=== PATIENT | male | born 1985 | race Two or more races ===

== ENCOUNTER 2020-06-18 13:47 | Outpatient (REF) | payer OTHER, SELFPAY | END 2020-06-18 13:48 | disposition home or self-care (01) | LOC: HO.LAB 13:47 | PROVIDERS: Visit Provider Internal Medicine | DX: Z20.822 Contact with and (suspected) exposure to COVID-19 (principal) | CPT/HCPCS: 36415; C9803; U0003 ==

== ENCOUNTER 2020-08-29 10:22 | Emergency (ER) | payer OTHER, SELFPAY ==
[2020-08-29 10:26] VITALS: BP 153/82; PULSE 72; RESP 16; TEMP 36.7; O2SAT 98; BMI 31.1
--- NOTE | 2020-08-29 11:25 | ED.BACK ---
HPI - Back Pain/Injury General Chief Complaint: Back Pain/Injury Stated Complaint: back pain - fall Time Seen by Provider: 08/29/20 10:41 Source: patient Mode of arrival: ambulatory Limitations: no limitations History of Present Illness HPI Narrative: 35-year-old male with no significant past medical history presenting to the ED complaining of acute on chronic low back pain s/p mechanical fall down a couple stairs last week. Reports mechanical slip and fall due to wet stairs, landing on buttocks/back, denies head trauma or LOC. patient requesting work note. denies radiation of pain, numbness, tingling, weakness, urinary incontinence/retention MD elicited complaint: back pain, back injury and fall Related Data Allergies Allergy/AdvReac Type Severity Reaction Status Date / Time No Known Allergies Allergy Unverified 02/23/20 19:34 [No Known Allergies*] Review of Systems Review of Systems: Constitutional: No Fever, No Chills Cardiovascular: No Chest Pain, No SOB Genitourinary: No Urinary Incontinence/retention Musculoskeletal: +back pain, No Myalgias, No Joint Swelling Skin: No Skin Lesions, No rash Neuro: No Weakness, No Numbness, No Paresthesias Yes all other systems are reviewed and are negative [facility] Past Medical History Attestation statement: The following information was validated with the patient. Medical History (Updated 08/29/20 @ 11:27 by SEBASTIEN Boone) No known health problems Surgical History (Updated 08/29/20 @ 10:28 by Bhaskar Hensley) No history of previous surgery Social History Social History Alcohol intake: never Smoking Status: Current every day smoker Use of substances other than those prescribed or required for medical reasons: No Advance Directives: No Advance Directives Information Provided: No Physical Exam Vital Signs: Vital Signs: Last Vital Signs Temp 98.0 F 08/29/20 10:26 Pulse 72 08/29/20 10:26 Resp 16 08/29/20 10:26 BP 153/82 H 08/29/20 10:26 Pulse Ox 98 08/29/20 10:26 Body Mass Index 31.1 Const: General: cooperative, healthy appearing, comfortable and no acute distress Orientation/consciousness: patient oriented x3 Limitations: no limitations HENMT: Head: Yes normal to inspection Ears: hearing grossly normal bilaterally General nose exam: Normal external nose present Face and sinus: Yes normal facial exam Eyes: General: appearance normal, both eyes and all related structures EOM: EOMs intact bilaterally Neck: Other: No midline cervical spinous tenderness Neck: Yes normal visual inspection and Yes no meningeal signs Resp: Effort & Inspection: normal respiratory effort Cardio: Rate: regular rate Back/Spine/Pelvis: Other: No midline thoracic/lumbar spinous tenderness/deformity or step-off. Tenderness not reproducible on exam Skin: Rashes: no rashes Wounds: no wounds Neuro: Other: No saddle anesthesia. Ambulating with steady gait General: patient oriented x3, gait normal, tone normal, moves all extremities, no meningeal signs and no focal motor deficits Gait exam (Neuro): Normal gait present Motor exam (neuro): 5/5 motor strength present throughout Extrem: General: Yes normal to inspection MDM - Back Pain/Injury MDM Narrative Medical decision making narrative: On exam VSS, NAD/well-appearing, no midline spinous tenderness throughout, no red flag symptoms, no saddle anesthesia, ambulating with steady gait. Likely MSK pain. Low concern for fracture/dislocation, cauda equina or cord compression Differential Diagnosis Differential diagnosis: Likely lumbar radiculopathy and strain of lumbar region Medical Records Attestation: I reviewed the patient's medical records. Discharge Plan Discharge Clinical Impression: Strain of lumbar region Qualifiers: Encounter type: initial encounter Qualified Code(s): S39.012A - Strain of muscle, fascia and tendon of lower back, initial encounter Patient Disposition: Home, Self-Care Instructions: Back Pain (ED) Additional Instructions: Your pain is likely musculoskeletal Flexeril is a muscle relaxer, take at night as it makes you drowsy, do not drive, drink alcohol, or operate machinery while taking it Naproxen as an anti-inflammatory / pain medication, take with food Lidoderm patches are numbing patches, apply to painful area In addition take Tylenol at home If symptoms persist or worsen, pain becomes unbearable, you developed urinary retention or incontinence, or weakness return to the ED Es probable que no dolor sea musculoesquel?irene Flexeril es un relajante muscular, t?[place] por la noche ya que le produce somnolencia, no conduzca, no lindsay alcohol ni utilice maquinaria mientras lo cami. Naproxeno muriel medicamento antiinflamatorio / analg?sico, brandon con alimentos. Los parches de Lidoderm son parches que adormecen, se aplican al ?hang dolorida Adem?s, tome Tylenol en casa. Si los s?ntomas persisten o empeoran, el dolor se vuelve insoportable, desarroll? retenci?n urinaria o incontinencia, o debilidad regrese al servicio de urgencias Referrals: Physician,Unknown [Primary Care Provider] - 2 days Stand Alone Forms: Work/School Release Print Language: Syriac
== END 2020-08-29 11:31 | disposition home or self-care (01) ==
PROVIDERS: Emergency Provider Emergency Medicine
DX: S39.012A Strain of muscle, fascia and tendon of lower back, initial encounter (principal); W10.8XXA Fall (on) (from) other stairs and steps, initial encounter; F17.200 Nicotine dependence, unspecified, uncomplicated; Y93.9 Activity, unspecified; Y92.9 Unspecified place or not applicable; Y99.9 Unspecified external cause status
CPT/HCPCS: 99283; 99284

== ENCOUNTER 2021-01-09 10:47 | Emergency (ER) | payer OTHER, SELFPAY ==
[2021-01-09 10:52] VITALS: BP 137/83; PULSE 85; RESP 16; TEMP 37.1; O2SAT 99; BMI 28.2
--- NOTE | 2021-01-09 11:52 | ED_ITS ---
HPI - General Adult General Chief complaint: Back Pain/Injury Stated complaint: Lower back pain Time Seen by Provider: 01/09/21 11:51 Source: patient Limitations: no limitations History of Present Illness HPI narrative: This is a 35-year-old male who was at work yesterday, lifting a refrigerator when he developed pain in his left lower back. The patient has had a prior history of back problems and has gone to physical therapy. The patient states the pain is moderate, aching, worse with certain movements. He denies any pain down his leg or legs, denies any numbness or tingling or weakness in his legs. Denies any trouble with going to the bathroom/urinating. Related Data Previous Rx's Medication Instructions Recorded cyclobenzaprine 10 mg tablet 10 mg PO TID PRN #20 tab 01/09/21 ibuprofen 800 mg tablet 800 mg PO Q8H PRN #30 tab 01/09/21 Allergies Allergy/AdvReac Type Severity Reaction Status Date / Time No Known Allergies Allergy Unverified 02/23/20 19:34 [No Known Allergies*] Review of Systems Musculoskeletal: Musculoskeletal: Reports back pain and Denies numbness Neurologic: Reports as per HPI, Denies focal weakness, Denies numbness and Denies Sensory deficit (Neuro) [facility] Past Medical History Medical History (Updated 01/09/21 @ 11:55 by Hudson Bean MD) No known health problems Surgical History No history of previous surgery Social History Social History Alcohol intake: never Advance Directives: No Advance Directives Information Provided: No Physical Exam Vital Signs: Vital Signs: Last Vital Signs Temp 98.8 F 01/09/21 10:52 Pulse 85 01/09/21 10:52 Resp 16 01/09/21 10:52 BP 137/83 01/09/21 10:52 Pulse Ox 99 01/09/21 10:52 Body Mass Index 28.2 Const: General: cooperative, no acute distress and alert [place] ation/consciousness: patient oriented x3 HENMT: Head: Yes normal to inspection Eyes: General: appearance normal, both eyes and all related structures Eyelids: Yes eyelids normal Conjunctivae: conjunctivae normal Pupils: Equal, round and reactive pupils present Neck: Neck: Yes normal visual inspection and Yes supple Chest: Chest palpation & inspection: normal inspection of the chest Resp: Effort & Inspection: normal respiratory effort Auscultation: clear to auscultation bilaterally Cardio: Rate: regular rate Rhythm: regular rhythm Heart sounds: S1 normal heart sound present, S2 normal heart sound present, no gallops, no murmurs and no rubs GI: Palpation (GI): Soft to palpation, nontender and Other GI palpation findings present (Non-distended) Auscultation: normal bowel sounds Back/Spine/Pelvis: Other: Tender left lumbar back, no spinal tenderness. Straight leg test negative. Normal neurologic exam of lower extremities Skin: General skin exam: no rashes or lesions noted Neuro: General: patient oriented x3, no focal motor deficits and CN's II-XI intact bilaterally Cranial nerves: Yes Equal, round and reactive pupils present Cognition (Neuro): normal cognition Motor exam (neuro): 5/5 motor strength present throughout Sensory Exam: No Sensory deficit (Neuro) Extrem: General: Yes normal to inspection and Yes no pedal edema Psych: Appearance: grossly normal Affect: normal affect Medical Decision Making MDM Narrative Medical decision making narrative: Patient with lumbar back strain after lifting heavy object. Mild muscular tenderness. No leg pain or neurologic symptoms. Normal neurologic exam of the lower extremities. Findings consistent with muscular strain. Recommend anti-inflammatory medicines, muscle relaxants, rest, ice packs, and patient is to be off of work for the next 4 days Discharge Plan Discharge Clinical Impression: Strain of lumbar region Patient Disposition: Home, Self-Care Instructions: Acute Low Back Pain (ED), Core Strengthening Exercises (ED) Additional Instructions: Use ibuprofen and some Flexeril as prescribed. Use an ice pack off and on. Try to rest your back and avoid lifting or bending for the next 4 days. Follow-up with primary care physician Prescriptions: New ibuprofen 800 mg tablet 800 mg PO Q8H PRN (Reason: pain) Qty: 30 RF: 0 cyclobenzaprine 10 mg tablet 10 mg PO TID PRN (Reason: muscle spasm) Qty: 20 RF: 0 Stand Alone Forms: Work/School Release Interventions: ED Discharge Assessment Last Done: 01/09/21 12:06 Discharge Date/Time: 01/09/21 12:06
[2021-01-09] MEDS: Ibuprofen 800 MG TABLET PO (12:01)
[2021-01-09] MEDS: Cyclobenzaprine HCl 10 MG TABLET PO (12:02)
== END 2021-01-09 12:06 | disposition home or self-care (01) ==
PROVIDERS: Emergency Provider Emergency Medicine
DX: S39.012A Strain of muscle, fascia and tendon of lower back, initial encounter (principal); X50.0XXA Overexertion from strenuous movement or load, initial encounter; Y93.E9 Activity, other interior property and clothing maintenance; Y92.030 Kitchen in apartment as the place of occurrence of the external cause; Y99.9 Unspecified external cause status
CPT/HCPCS: 99283

== ENCOUNTER 2021-03-14 13:51 | Emergency (ER) | payer OTHER, SELFPAY ==
--- NOTE | ~2021-03-14 | XR_ITS ---
EXAMINATION: XR CHEST CLINICAL INFORMATION: Cough COMPARISON: Previous chest x-ray May 2019 TECHNIQUE: Frontal view of the chest was obtained. FINDINGS: No significant abnormality is noted involving the heart, lungs, mediastinum, bony thorax or soft tissues. XR/XR chest 1V IMPRESSION: Unremarkable examination.
--- NOTE | 2021-03-14 14:09 | ECG_ITS ---
Test Reason : CHEST PAIN Blood Pressure : / mmHG Vent. Rate : 091 BPM Atrial Rate : 091 BPM P-R Int : 140 ms QRS Dur : 086 ms QT Int : 344 ms P-R-T Axes : 061 -16 016 degrees QTc Int : 423 ms Normal sinus rhythm Normal ECG No previous ECGs available Referred By: Generic ED Physician Electronically Signed By:SHILPI SIMS MD
[2021-03-14 14:38] LABS: COVID-19 Test Negative (Negative)
[2021-03-14 15:34] VITALS: BP 138/78; PULSE 98; RESP 18; TEMP 37.4; O2SAT 98; BMI 30.3
--- NOTE | 2021-03-14 17:10 | ED_ITS ---
HPI - General Adult General Chief complaint: Upper Respiratory Symptoms Stated complaint: congestion heart burn chest tightness Time Seen by Provider: 03/14/21 17:09 Source: patient Mode of arrival: ambulatory Limitations: language barrier History of Present Illness HPI narrative: 36 years old male is here today for complaints of upper respiratory symptoms. Patient denies any ill contacts. He reports that sympto ms started to days ago. Rhinitis, stuffy nose, congestion, occasional cough, no respiratory distress no wheezing no nausea, vomiting, diarrhea, headache. Patient denies any subjective fevers, denies any chills. Patient denies any other symptoms like chest pain, presyncope, syncope, abdominal pain or discomfort. Onset (ago): day(s) Related Data Previous Rx's Medication Instructions Recorded cyclobenzaprine 10 mg tablet 10 mg PO TID PRN #20 tab 01/09/21 ibuprofen 800 mg tablet 800 mg PO Q8H PRN #30 tab 01/09/21 amoxicillin 500 mg capsule 500 mg PO BID #10 cap 03/14/21 loratadine 10 mg tablet (Claritin) 10 mg PO DAILY PRN #20 tab 03/14/21 Allergies Allergy/AdvReac Type Severity Reaction Status Date / Time No Known Allergies Allergy Verified 03/14/21 15:34 [No Known Allergies*] Review of Systems Review of Systems: Constitutional : No Weight loss, No Fever, No Chills, No Night Sweats, No Fatigue, No Malaise ENT/Mouth : No Hearing loss, No Ear Pain, Nasal Congestion, No Sinus Pain, No Hoarseness, No sore throat, Rhinorrhea, No Swallowing Difficulty Eyes: No Eye Pain, No Swelling, No Redness, No Foreign Body, No Discharge, No Vision Changes Cardiovascular : No Chest Pain, No SOB, No Dyspnea on Exertion, No Orthopnea, No Edema, No Palpitations Respiratory : Occasional Cough, No Sputum, No Wheezing, No Smoke Exposure, No Dyspnea Gastrointestinal : No Nausea, No Vomiting, No Diarrhea, No Constipation, No abdominal Pain, No Hematochezia, No Melena Genitourinary : no irregular bleeding, No Dysuria, No Urinary Frequency, No Hematuria, No Urinary Incontinence, No Urgency, No Flank Pain, No Urinary Flow Changes, No Hesitancy Musculoskeletal : No joint pain, No Myalgias, No Joint Swelling Skin : No Skin Lesions, No rash Neuro : No Weakness, No Numbness, No Paresthesias, No Loss of Consciousness, No Dizziness, No Headache Yes all other systems are reviewed and are negative PMF[facility] Past Medical History Medical History (Updated 03/14/21 @ 17:30 by Maine Culver [facility]) No known health problems Surgical History No history of previous surgery Social History Social History Alcohol intake: never Advance Directives: No Advance Directives Information Provided: No Physical Exam Vital Signs: Vital Signs: Last Vital Signs Temp 99.4 F 03/14/21 15:34 Pulse 98 03/14/21 15:34 Resp 18 03/14/21 15:34 BP 138/78 03/14/21 15:34 Pulse Ox 98 03/14/21 15:34 Body Mass Index 30.3 Const: General: healthy appearing, no acute distress and well developed Nutritional Appearance: well nourished Orientation/consciousness: patient oriented x3 HENMT: Head: Yes normal to inspection, Yes normocephalic and Yes atraumatic Ears: TM normal on the right, TM normal on the left and TM abnormal (Left) with fluid behind the TM Neck: Neck: Yes normal visual inspection, Yes full ROM and Yes trachea midline Thyroid: Thyroid normal Resp: Effort & Inspection: normal respiratory effort and able to speak in complete sentences Auscultation: clear to auscultation bilaterally Cardio: Rate: regular rate Rhythm: regular rhythm GI: Inspection: Yes normal to inspection and No distended Palpation (GI): Soft to palpation, nontender, no guarding and No hepatosplenomegaly present Auscultation: normal bowel sounds Skin: General skin exam: elasticity normal, turgor normal and dry skin Neuro: General: patient oriented x3 Course Course Course Narrative: 36 years old male is here today with upper respiratory symptoms he reports that those symptoms started 2 days ago. Denies subjective fevers, no chills. No ill contacts. He reports to have congestion occasional cough no earache no dizziness, no nausea, no vomiting, no diarrhea. Patient d enies any other symptoms. Will do x-ray, EKG, COVID testing, fluid behind left ear drum Reevaluation(s) Reevaluation #1: Normal EKG without any ectopies, normal x-ray, covid negative Medical Decision Making Lab Data Labs: Lab Results 03/14/21 Range/Units 14:16 COVID-19 ([place]) Negative (Negative) COVID-19 Clin Com See Note Imaging Data Chest x-ray: Attestation: I personally reviewed and interpreted this imaging study as follows: Radiologist's impression: FINDINGS: No significant abnormality is noted involving the heart, lungs, mediastinum, bony thorax or soft tissues. ECG Data Interpretation: Ventricular rate 91, atrial rate 91, ID interval 0.14, QRS: 0.08, no ectopy, no ischemia Discharge Plan Discharge Clinical Impression: Upper respiratory infection Qualifiers: URI type: unspecified viral URI Qualified Code(s): J06.9 - Acute upper respiratory infection, unspecified Otitis media Qualifiers: Otitis media type: unspecified Laterality: left Qualified Code(s): H66.92 - Otitis media, unspecified, left ear Patient Disposition: Home, Self-Care Instructions: Ear Infection (ED), Viral Syndrome (ED) Additional Instructions: Lo vieron aqu? hoy por s?ntomas de las v?as respiratorias superiores que probablemente reema virales. Ten?a l?quido detr?s de no oreja izquierda. Le dieron la primera dosis de antibi?irene y algo para ayudarlo con la congesti?n. Se le enviar? a casa con antibi?ticos, as? que term?keara todo. Tambi?n se le daniela? un sayra?n para la congesti?n que puede brandon todos los d?as cuando sea necesario. Bradley un seguimiento con no proveedor de atenci?n primaria en 2-3 d?as. Puede regresar al departamento de emergencias si светлана s?ntomas empeoran o si experimenta alg?n s?ntoma preocupante adicional Prescriptions: New amoxicillin 500 mg capsule 500 mg PO BID Qty: 10 RF: 0 loratadine [Claritin] 10 mg tablet 10 mg PO DAILY PRN (Reason: allergy symptoms) Qty: 20 RF: 0 No Action ibuprofen 800 mg tablet 800 mg PO Q8H PRN (Reason: pain) Qty: 30 RF: 0 cyclobenzaprine 10 mg tablet 10 mg PO TID PRN (Reason: muscle spasm) Qty: 20 RF: 0 Stand Alone Forms: Work/School Release
[2021-03-14] MEDS: Loratadine 10 MG TABLET PO (17:54)
[2021-03-14] MEDS: Amoxicillin 500 MG CAPSULE PO (17:54)
== END 2021-03-14 18:02 | disposition home or self-care (01) ==
PROVIDERS: Emergency Provider Emergency Medicine
DX: J06.9 Acute upper respiratory infection, unspecified (principal); H66.92 Otitis media, unspecified, left ear; Z20.822 Contact with and (suspected) exposure to COVID-19
CPT/HCPCS: 36415; 71045; 87635; 93005; 99283

== ENCOUNTER 2022-01-07 11:57 | Emergency (ER) | payer OTHER, SELFPAY ==
[2022-01-07 12:50] VITALS: BP 120/75; PULSE 54; RESP 18; TEMP 36.4; O2SAT 98; BMI 29.8
--- NOTE | 2022-01-07 16:16 | ED.NECK ---
HPI - Neck Pain/Injury General Chief Complaint: Neck Pain/Injury Stated Complaint: Neck pain Source: patient Mode of arrival: ambulatory Limitations: no limitations History of Present Illness HPI Narrative: 36-year-old male presents with 2 days of left-sided neck pain after sleeping wrong. States that he has full range of motion and does not report any numbness or tingling or decreased sensation to any of his extremities. He denies fevers, chills, weakness, loss of balance, chest pain or pressure, palpitations, and symptoms indicating cauda equina. MD complaint: neck pain Onset (ago): day(s) (2) Place: home Radiation: left shoulder (Left trapezius) Severity: mild Severity scale (1-10): 5 Quality: aching Duration: constant Relieving factors: none Exacerbating factors: movement of neck Context: other (Slept wrong) Associated symptoms: none Treatments prior to arrival: acetaminophen and ibuprofen Related Data Previous Rx's Medication Instructions Recorded cyclobenzaprine 10 mg tablet 10 mg PO TID PRN muscle spasm #20 01/09/21 tabs ibuprofen 800 mg tablet 800 mg PO Q8H PRN pain #30 tabs 01/09/21 amoxicillin 500 mg capsule 500 mg PO BID #10 caps 03/14/21 loratadine 10 mg tablet (Claritin) 10 mg PO DAILY PRN allergy 03/14/21 symptoms #20 tabs cyclobenzaprine 10 mg tablet 10 mg PO TID PRN muscle spasm #20 01/07/22 tabs Allergies Allergy/AdvReac Type Severity Reaction Status Date / Time No Known Allergies Allergy Verified 01/07/22 12:49 [No Known Allergies*] Review of Systems Review of Systems: Constitutional: No Fever, No Chills ENT/Mouth: No Ear Pain, No Hoarseness, No sore throat Eyes: No Eye Pain, No Swelling, No Redness, No Foreign Body Cardiovascular: No Chest Pain, No SOB Respiratory: No Cough, No Dyspnea Gastrointestinal: No Nausea, No Vomiting, No Diarrhea, No abdominal Pain Genitourinary: No Dysuria, No Hematuria Musculoskeletal: positive left trapezius pain, No Myalgias, No Joint Swelling Skin: No Skin lacerations, No rash Neuro: No Weakness, No Numbness, No Paresthesias, No Loss of Consciousness, No Dizziness, No Headache Psych: No Anxiety/Panic, No Depression Heme/Lymph: no easy bruising, no Lymphadenopathy Endocrine: No Polyuria, No Polydipsia Yes all other systems are reviewed and are negative [facility] Past Medical History Attestation statement: The following information was validated with the patient. Source: old records reviewed Medical History No known health problems Surgical History No history of previous surgery Social History Social History Alcohol intake: never Advance Directives: No Advance Directives Information Provided: Yes Physical Exam Vital Signs: Vital Signs: Last Vital Signs Temp 97.6 F 01/07/22 12:50 Pulse 54 01/07/22 12:50 Resp 18 01/07/22 12:50 BP 120/75 01/07/22 12:50 Pulse Ox 98 01/07/22 12:50 O2 Del Method 01/07/22 12:50 BMI result Body Mass Index 29.8 Appearance: Alert. Oriented X3. No acute distress. Eyes: Pupils equal, round and reactive to light. ENT: Pharynx normal. Moist mucous membranes. Neck: Normal inspection. Neck supple. Tenderness and spasm noted to the left trapezius. No vertebral tenderness or step-offs. No axial loading tenderness. Full range of motion against resistance. CVS: Normal heart rate and rhythm. Pulses normal. Respiratory: No respiratory distress. Breath sounds normal. Abdomen: Soft and nontender. Skin: Skin warm and dry. Normal skin color. Normal skin turgor. Extremities: Strength 5/5 to all extremities. Full range of motion. Brisk capillary refill and equal pulses. Neuro: No motor deficit. No sensory deficit. Cranial nerves 2-12 intact. Course Course Course Narrative: 36-year-old male presents with 2 days of left trapezius spasming after sleeping wrong. He has been using Tylenol and Motrin with poor effect. He is neurovascularly intact, full range of motion to all extremities passive and active and against resistance. Gait is well balanced well coordinated. Nontoxic and afebrile. Patient appears comfortable, moving his head without difficulty. Palpable muscle spasms to the left trapezius noted. No vertebral tenderness or step-offs. Plan of care is to treat with muscle relaxers. 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 Google translate utilized for discharge instructions. Patient verbalized understanding of and agrees to plan of care discharge home. MDM - Neck Pain/Injury Differential Diagnosis Differential diagnosis: Likely torticollis and strain of neck muscle Medical Records Attestation: I reviewed the patient's medical records. Discharge Plan Discharge Clinical Impression: Strain of neck muscle Patient Disposition: Home, Self-Care Instructions: Muscle Strain (ED) Additional Instructions: Le evaluaron por espasmo muscular en el trapecio barbara. Munjor ciclobenzaprina 10 mg cada 8 horas seg?n sea necesario para los espasmos musculares. Ester medicamento es un relajante muscular. No conduzca ni maneje maquinaria mientras cami ester medicamento. Ester medicamento puede retrasar el tiempo de reacci?n, aumentar el riesgo de ca?toure y causar somnolencia. Ally muchos l?quidos mientras cami ester medicamento. Seguimiento con el m?dico de atenci?n primaria seg?n sea necesario. Regrese al departamento de emergencias por cualquier s?ntoma nuevo, preocupante o que empeore You were evaluated for muscle spasm to your left trapezius. Please take cyclobenzaprine 10 mg every 8 hours as needed for muscle spasms. This medication is muscle relaxer. Do not drive or operate machinery while taking this medication. This medication can delay reaction time, increased risk for falls, and cause drowsiness. Drink plenty of fluids while taking this medication. Follow-up with primary care physician as needed. Return to the emergency department for any new, concerning, or worsening symptoms. Prescriptions: New cyclobenzaprine 10 mg tablet 10 mg PO TID PRN (Reason: muscle spasm) Qty: 20 0RF No Action ibuprofen 800 mg tablet 800 mg PO Q8H PRN (Reason: pain) Qty: 30 0RF cyclobenzaprine 10 mg tablet 10 mg PO TID PRN (Reason: muscle spasm) Qty: 20 0RF amoxicillin 500 mg capsule 500 mg PO BID Qty: 10 0RF loratadine [Claritin] 10 mg tablet 10 mg PO DAILY PRN (Reason: allergy symptoms) Qty: 20 0RF Stand Alone Forms: Work/School Release Interventions: ED Discharge Assessment Last Done: 01/07/22 16:51 Discharge Date/Time: 01/07/22 16:53
--- NOTE | 2022-01-07 16:49 | PC.NURSE ---
PT EVALUATED BY PROVIDER. PLAN IS FOR DC HOME. PT AWAKE, ALERT AND ORIENTED X 3. SKIN WARM AND DRY. RESP UNLABORED. DENIES N/V. PT WATCHING PHONE. NO ACUTE DISTRESS NOTED. 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 PT AWARE AND AGREEABLE TO PLAN
== END 2022-01-07 16:53 | disposition home or self-care (01) ==
PROVIDERS: Emergency Provider Internal Medicine
DX: S16.1XXA Strain of muscle, fascia and tendon at neck level, initial encounter (principal); X50.1XXA Overexertion from prolonged static or awkward postures, initial encounter; Y93.84 Activity, sleeping; Y92.003 Bedroom of unspecified non-institutional (private) residence as the place of occurrence of the external cause; Y99.9 Unspecified external cause status
CPT/HCPCS: 99282; 99283

== ENCOUNTER 2022-01-30 08:46 | Emergency (ER) | payer OTHER, SELFPAY ==
[2022-01-30 09:25] VITALS: BP 140/95; PULSE 75; RESP 18; TEMP 36.9; O2SAT 100; BMI 29.0
--- NOTE | 2022-01-30 09:54 | ED_ITS ---
HPI - Neck Pain/Injury General Chief Complaint: Neck Pain/Injury Stated Complaint: neck pain Time Seen by Provider: 01/30/22 09:30 Source: patient and iv technician Mode of arrival: ambulatory Limitations: no limitations History of Present Illness HPI Narrative: 37-year-old male presents to the ER for evaluation of right-sided neck pain that he woke up with this morning. He reports he had no pain when he went to bed last night but woke up with the pain this morning. He states when he woke up he is barely able to move his head or neck. He tried to go to work but the pain was too severe. He came to the ER for further evaluation. He denies any injury or trauma. He states he has had this type of pain before, it is becoming more frequent. He reports the pain is on the right side of the neck and is worse w hen he moves his head up and to the right. He denies any headache, fever, chills. MD complaint: neck pain Onset (ago): hour(s) Place: home Radiation: right lateral Severity: severe Severity scale (1-10): 8 Quality: stabbing and spasming Duration: constant Relieving factors: none Exacerbating factors: movement of neck Associated symptoms: none Treatments prior to arrival: none Related Data Previous Rx's Medication Instructions Recorded cyclobenzaprine 10 mg tablet 10 mg PO TID PRN muscle spasm #20 01/09/21 tabs ibuprofen 800 mg tablet 800 mg PO Q8H PRN pain #30 tabs 01/09/21 amoxicillin 500 mg capsule 500 mg PO BID #10 caps 03/14/21 loratadine 10 mg tablet (Claritin) 10 mg PO DAILY PRN allergy 03/14/21 symptoms #20 tabs cyclobenzaprine 10 mg tablet 10 mg PO TID PRN muscle spasm #20 01/07/22 tabs cyclobenzaprine 10 mg tablet 10 mg PO TID PRN muscle spasm #10 01/30/22 tabs ibuprofen 600 mg tablet 600 mg PO Q8H PRN pain #10 tabs 01/30/22 lidocaine 5 % topical patch 1 patch topical DAILY #15 ea 01/30/22 Allergies Allergy/AdvReac Type Severity Reaction Status Date / Time No Known Allergies Allergy Verified 01/07/22 12:49 [No Known Allergies*] Review of Systems Review of Systems: Constitutional: No Fever, No Chills ENT/Mouth: No sore throat Cardiovascular: No Chest Pain, No SOB Gastrointestinal: No Nausea, No Vomiting Musculoskeletal: No joint pain, + Myalgias Skin: No Skin Lesions, No rash Neuro: No Weakness, No Numbness, No Dizziness, No Headache Psych: No Anxiety/Panic, No Depression Heme/Lymph: No Bruising, No Lymphadenopathy PMFSH Past Medical History Medical History No known health problems Surgical History No history of previous surgery Social History Social History Alcohol intake: never Advance Directives: No Advance Directives Information Provided: No Physical Exam Vital Signs: Vital Signs: Last Vital Signs Temp 98.4 F 01/30/22 09:25 Pulse 75 01/30/22 09:25 Resp 18 01/30/22 09:25 BP 140/95 H 01/30/22 09:25 Pulse Ox 100 01/30/22 09:25 O2 Del Method 01/30/22 09:25 BMI result Body Mass Index 29.0 Appearance: Alert. Oriented X3. No acute distress. HEENT: normal inspection Neck: Normal inspection. Supple. No midline tenderness. There is soft tissue tenderness on the right side of the neck with associated spasm. Pain with rotation to the right. Normal range of motion of the neck however pain is elicited when rotating to the right and looking up. CVS: Normal heart rate and rhythm. Pulses normal. Respiratory: No respiratory distress. Skin: Skin warm and dry. Normal skin color. Normal skin turgor. No rashes. Extremities: Normal inspection x4 Neuro: Oriented X 3. No motor deficit. No sensory deficit. Course Course Course Narrative: 37-year-old male presents to the ER for evaluation of right-sided neck pain that he woke up this morning. No trauma. Exam and clinical presentation are consistent with cervical muscle strain. Will prescribe muscle relaxer and anti- inflammatory medication. He is asking for work note. This was provided. Stable for discharge home. Discharge Plan Discharge Clinical Impression: Strain of neck muscle Patient Disposition: Home, Self-Care Instructions: Cervical Strain (ED) Additional Instructions: Your pain is due to muscle strain and spasm. No bending, lifting or twisting. Use ice several times per day for 20 minutes at a time for the next 48 hours and then change to heat. Take medications as prescribed to help with pain and discomfort. Follow up with your Primary Care Doctor this week. If you develop new or worsening symptoms call 911 or come back to the ER for further evaluation. Prescriptions: New cyclobenzaprine 10 mg tablet 10 mg PO TID PRN (Reason: muscle spasm) Qty: 10 0RF ibuprofen 600 mg tablet 600 mg PO Q8H PRN (Reason: pain) Qty: 10 0RF lidocaine 5 % adhesive patch,medicated 1 patch topical DAILY Qty: 15 0RF Rx Instructions: leave on most painful area for up to 12 hrs No Action ibuprofen 800 mg tablet 800 mg PO Q8H PRN (Reason: pain) Qty: 30 0RF cyclobenzaprine 10 mg tablet 10 mg PO TID PRN (Reason: muscle spasm) Qty: 20 0RF cyclobenzaprine 10 mg tablet 10 mg PO TID PRN (Reason: muscle spasm) Qty: 20 0RF amoxicillin 500 mg capsule 500 mg PO BID Qty: 10 0RF loratadine [Claritin] 10 mg tablet 10 mg PO DAILY PRN (Reason: allergy symptoms) Qty: 20 0RF Stand Alone Forms: Work/School Release Interventions: ED Discharge Assessment Last Done: 01/30/22 10:18 Discharge Date/Time: 01/30/22 10:19 Print Language: Upper Sorbian
== END 2022-01-30 10:19 | disposition home or self-care (01) ==
PROVIDERS: Emergency Provider Emergency Medicine Emergency Medical Services
DX: S16.1XXA Strain of muscle, fascia and tendon at neck level, initial encounter (principal); X50.1XXA Overexertion from prolonged static or awkward postures, initial encounter; Y93.84 Activity, sleeping; Y92.032 Bedroom in apartment as the place of occurrence of the external cause; Y99.9 Unspecified external cause status
CPT/HCPCS: 99282; 99283

== ENCOUNTER 2022-02-13 11:16 | Emergency (ER) | payer OTHER, SELFPAY ==
[2022-02-13 11:24] VITALS: BP 141/83; PULSE 72; RESP 16; TEMP 37.1; O2SAT 97; BMI 29.8
--- NOTE | 2022-02-13 12:40 | ED.BACK ---
HPI - Back Pain/Injury General Chief Complaint: Back Pain/Injury Stated Complaint: back pain Time Seen by Provider: 02/13/22 12:36 Source: patient Mode of arrival: ambulatory Limitations: language barrier ( Norwegian-speaking) History of Present Illness HPI Narrative: 37-year-old male who is Norwegian-speaking presenting to the ED with complaints of acute on chronic back pain. Reports that he woke up today with worsening back pain to his left lower back. Reports that he has had this pain in the past and feels similar to his prior back pains. Reports that he had this injury approximately 1-2 years ago when he was injured at work. Denies any new injuries, chills, fatigue, malaise, neck pain/ stiffness, trouble swallowing breathing, chest pain or shortness of breath, recent falls or trauma, dysuria, hematuria, abdominal pain, flank pain, abnormal penile discharge, rashes, history of IV drug use, urinary bowel incontinence, saddle anesthesia, paresthesias or any other symptoms complaints or concerns at this time. MD elicited complaint: back pain Pertinent past history: prior back pain Onset (ago): day(s) (acute on chronic worsen when he woke up this morning ) Timing: constant Severity: moderate Similar Symptoms Previously: Yes Quality: aching, spasming and throbbing Location: left lower back Radiation: none Exacerbating factors: movement, sitting upright, walking and lifting Relieving factors: none Context: unknown Associated symptoms: denies other symptoms Treatments prior to arrival: cold therapy, heat therapy, NSAIDS, acetaminophen and other medications Work related injury: No Related Data Previous Rx's Medication Instructions Recorded cyclobenzaprine 10 mg tablet 10 mg PO TID PRN muscle spasm #20 01/09/21 tabs ibuprofen 800 mg tablet 800 mg PO Q8H PRN pain #30 tabs 01/09/21 amoxicillin 500 mg capsule 500 mg PO BID #10 caps 03/14/21 loratadine 10 mg tablet (Claritin) 10 mg PO DAILY PRN allergy 03/14/21 symptoms #20 tabs cyclobenzaprine 10 mg tablet 10 mg PO TID PRN muscle spasm #20 01/07/22 tabs cyclobenzaprine 10 mg tablet 10 mg PO TID PRN muscle spasm #10 01/30/22 tabs ibuprofen 600 mg tablet 600 mg PO Q8H PRN pain #10 tabs 01/30/22 lidocaine 5 % topical patch 1 patch topical DAILY #15 ea 01/30/22 cyclobenzaprine 10 mg tablet 10 mg PO Q8H #14 tabs 02/13/22 ibuprofen 800 mg tablet 800 mg PO Q8H PRN pain #14 tabs 02/13/22 oxycodone 5 mg tablet 5 mg PO Q6H PRN pain #14 tabs 02/13/22 Allergies Allergy/AdvReac Type Severity Reaction Status Date / Time No Known Allergies Allergy Verified 01/07/22 12:49 [No Known Allergies*] Review of Systems Review of Systems: Constitutional : No trauma, No Weight loss, No Fever, No Chills, ENT/Mouth : No Hearing loss, No Ear Pain, No Nasal Congestion, No Sinus Pain, No Hoarseness, No sore throat, No Rhinorrhea, No Swallowing Difficulty Cardiovascular : No Chest Pain, No SOB Respiratory : No Cough, No Dyspnea Gastrointestinal : No Nausea, No Vomiting, No Diarrhea, No abdominal Pain, No Hematochezia, No Melena Genitourinary : No Dysuria, No Urinary Frequency, No Hematuria, No Urinary or Bowel Incontinence/retention Musculoskeletal : + Back pain, No neck pain, No joint stiffness, No joint swelling Skin : No Skin Lesions, No rash or signs of infection Neuro : No Weakness, No radiation, No Numbness, No Paresthesias, No headache, no loss of bowel or bladder incontinence, no saddle anesthesia, Focal weakness, No radiation Denies history of IV drug usage. Yes all other systems are reviewed and are negative PMFSH Past Medical History Attestation statement: The following information was validated with the patient. Source: old records reviewed and nursing notes reviewed Medical History No known health problems Surgical History No history of previous surgery Social History Social History Alcohol intake: never Advance Directives: No Advance Directives Information Provided: No Physical Exam Vital Signs: Vital Signs: Last Vital Signs Temp 98.8 F 02/13/22 11:24 Pulse 72 02/13/22 11:24 Resp 16 02/13/22 11:24 BP 141/83 H 02/13/22 11:24 Pulse Ox 97 02/13/22 11:24 O2 Del Method 02/13/22 11:24 BMI result Body Mass Index 29.8 vital signs have been reviewed as normal and appeared to be correct. Blood pressure normal. Heart rate normal. Respiration rate normal. Temperature normal. Oxygen saturation normal. Appearance: Alert. Oriented X3. No acute distress. Head: Normal external exam. Normocephalic. Atraumatic. No Carrasco signs noted. No raccoon eyes noted Eyes: PERRLA. EOMI. Conjunctiva and sclera normal. Eyelids normal. ENT: EAC normal. TM's Normal. Pharynx normal. Uvula midline. Moist mucous membranes. No trismus noted. No drooling noted. No muffled voice noted. Neck: Normal inspection. Neck supple. FROM. No adenopathy. Thyroid Normal. No meningeal signs. No neck mass noted. CVS: Normal heart rate and rhythm. Heart sound normal. No murmurs noted. Pulses normal throughout. Respiratory: No respiratory distress. Painless inspiration. Breath sounds normal. No wheezes/rales/rhonchi noted. Chest nontender. No accessory muscle usage noted or decreased air movement noted. Abdomen: Soft and nontender. Bowel sounds normal in all 4 quadrants. No distention noted. No organomegaly noted. No visible injury noted. Back: No CVA tenderness. Full range of motion noted. No obvious deformities, or edema. Mild para-spinal muscular tenderness from lumbar region to coccyx. Full ROM in back and lower extremities. 5/5 strength hip extension/flexion, abduction, adduction. Mild Lumbar pain with hip flexion against resistance. Straight leg raise test negative on right; Straight leg raise test negative on left; Reflexes normal ankle and knee bilaterally; EHL motor strength normal bilaterally. No rashes/lesion/induration/fluctuance or signs infection noted. Skin: Skin warm and dry. Normal skin color. Normal skin turgor. No rashes/lesions/lacerations noted. Extremities: No lower extremity edema. Extremities exhibit normal range of motion. Extremities nontender. Neuro: Oriented X 3. No motor deficit. No sensory deficit. Reflexes normal. Patient has a normal steady gait. Course Course Course Narrative: Pt c likely muscular pain, but could be herniated disc. Neuro exam shows no deficits. Not c/w AAA/epidural abscess/dissection.No high risk Hx (Incont, fever, immunosupp, recent surgery/LP, coag, signif trauma, wt loss, puls mass, hx/o Ca, TB, or IVDU) to warrant MRI/CT today. Not c/w Pyelo/UTI/kidney stone/spinal fx. Not cauda equina syndrome. Imaging not currently indicated. DC c meds and f/u. MDM - Back Pain/Injury Medical Records Attestation: I reviewed the patient's medical records. Discharge Plan Discharge Clinical Impression: Strain of lumbar region Patient Disposition: Home, Self-Care Instructions: Low Back Strain (ED), Lower Back Exercises (ED) Prescriptions: New ibuprofen 800 mg tablet 800 mg PO Q8H PRN (Reason: pain) Qty: 14 0RF cyclobenzaprine 10 mg tablet 10 mg PO Q8H Qty: 14 0RF oxycodone 5 mg tablet 5 mg PO Q6H PRN (Reason: pain) Qty: 14 0RF Rx Instructions: Partial Fill upon patient request. No Action ibuprofen 800 mg tablet 800 mg PO Q8H PRN (Reason: pain) Qty: 30 0RF cyclobenzaprine 10 mg tablet 10 mg PO TID PRN (Reason: muscle spasm) Qty: 20 0RF cyclobenzaprine 10 mg tablet 10 mg PO TID PRN (Reason: muscle spasm) Qty: 20 0RF cyclobenzaprine 10 mg tablet 10 mg PO TID PRN (Reason: muscle spasm) Qty: 10 0RF ibuprofen 600 mg tablet 600 mg PO Q8H PRN (Reason: pain) Qty: 10 0RF lidocaine 5 % adhesive patch,medicated 1 patch topical DAILY Qty: 15 0RF Rx Instructions: leave on most painful area for up to 12 hrs amoxicillin 500 mg capsule 500 mg PO BID Qty: 10 0RF loratadine [Claritin] 10 mg tablet 10 mg PO DAILY PRN (Reason: allergy symptoms) Qty: 20 0RF Referrals: Physician,None [Primary Care Provider] - 2 days (your pcp) Stand Alone Forms: Work/School Release Print Language: Norwegian
== END 2022-02-13 12:54 | disposition home or self-care (01) ==
PROVIDERS: Emergency Provider Emergency Medicine Emergency Medical Services
DX: M54.50 Low back pain, unspecified (principal); Z79.899 Other long term (current) drug therapy
CPT/HCPCS: 99283

== ENCOUNTER 2022-03-13 09:44 | Emergency (ER) | payer OTHER, SELFPAY ==
--- NOTE | 2022-03-13 | ECG_ITS ---
Test Reason : chest pain Blood Pressure : / mmHG Vent. Rate : 096 BPM Atrial Rate : 096 BPM P-R Int : 144 ms QRS Dur : 094 ms QT Int : 354 ms P-R-T Axes : 055 -10 026 degrees QTc Int : 447 ms Normal sinus rhythm Normal ECG When compared with ECG of 14-MAR-2021 14:16, No significant change was found Referred By: Generic ED Physician Electronically Signed By:LASHA HOLGUIN
--- NOTE | ~2022-03-13 | CT_ITS ---
EXAMINATION: CT HEAD WITHOUT CONTRAST CLINICAL INFORMATION: Disoriented with chest pain and shortness of breath COMPARISON: None TECHNIQUE: Imaging was performed from the skull base to vertex without intravenous administration of contrast. This CT examination was performed using dose optimization techniques as appropriate, variously including the following: *Automated exposure control *Adjustment of mA and/or kV according to patient size (this includes techniques or standardized protocols for targeted exams where dose is matched to indication/reason for exam; i.e. extremities or head) *Use of iterative reconstruction technique Total exam dose length product: 661 mGy-cm FINDINGS: No intra or extra-axial fluid collection, hemorrhage, or mass. No ventriculomegaly. No midline shift or herniation. Basal cisterns are patent. Frazier-white matter differentiation is maintained. No territorial encephalomalacia. No significant volume loss. There is no abnormal attenuation within the brain parenchyma. No calvarial fracture or soft tissue abnormality. The mastoid air cells and visualized portions of the paranasal sinuses are well aerated. CT/CT head/brain wo IV con IMPRESSION: 1. No acute intracranial pathology.
--- NOTE | ~2022-03-13 | CT_ITS ---
EXAMINATION: CT ABDOMEN AND PELVIS WITH CONTRAST CLINICAL INFORMATION: Pain. Shortness of breath. Vomiting. COMPARISON: None TECHNIQUE: Multidetector volumetric images were obtained from the superior aspect of the liver through the pubic symphysis following administration 85 mL of Omnipaque 350 intravenous contrast. Sagittal and coronal reformatted images were obtained on the technologist's workstation. Oral contrast: No This CT examination was performed using dose optimization techniques as appropriate, variously including the following: *Automated exposure control *Adjustment of mA and/or kV according to patient size (this includes techniques or standardized protocols for targeted exams where dose is matched to indication/reason for exam; i.e. extremities or head) *Use of iterative reconstruction technique DLP: 707 mGy-cm FINDINGS: LUNG BASES: Please see separately dictated report for chest CT obtained the same day. LIVER, GALLBLADDER, AND BILIARY TREE: The liver appears unremarkable in size, shape, and attenuation. No focal hepatic lesion or biliary ductal dilatation is appreciated. Unremarkable appearance of the gallbladder. PANCREAS: Unremarkable SPLEEN: Unremarkable ADRENAL GLANDS: Unremarkable KIDNEYS AND URETERS: The kidneys appear unremarkable in size, shape, and attenuation. No hydronephrosis, hydroureter, or calculi seen. BLADDER: Unremarkable GASTROINTESTINAL TRACT: The small and large bowel appear unremarkable. No diverticulosis. Normal-appearing distal ileum and vermiform appendix. ABDOMINAL WALL: No significant hernia is appreciated. LYMPH NODES: No evidence of adenopathy by size criteria. VASCULAR: Unremarkable PELVIC VISCERA: Unremarkable OSSEOUS STRUCTURES: Unremarkable CT/CT abdomen pelvis w IV con IMPRESSION: Normal CT scans of the abdomen and pelvis with intravenous contrast only.
--- NOTE | ~2022-03-13 | CT_ITS ---
EXAMINATION: CT ANGIOGRAM OF THE CHEST WITH AND WITHOUT CONTRAST (CT PULMONARY ANGIOGRAM FOR PE) CLINICAL INFORMATION: Reason for Exam pt c chest pain/sob/vomiting COMPARISON: None TECHNIQUE: Prior to contrast administration, noncontrast localization images were obtained. Subsequently, multidetector volumetric imaging was performed from the thoracic inlet to below the diaphragms following the administration of 85 mL Omnipaque 350 intravenous contrast. No contrast reaction reported Sagittal, coronal, and MIP oblique sagittal reformatted images were obtained on the CT workstation, uploaded to PACS, and reviewed. This CT examination was performed using dose optimization techniques as appropriate, variously including the following: *Automated exposure control *Adjustment of mA and/or kV according to patient size (this includes techniques or standardized protocols for targeted exams where dose is matched to indication/reason for exam; i.e. extremities or head) *Use of iterative reconstruction technique Total exam dose-length product 1733 mGy-cm FINDINGS: Somewhat limited by motion artifact. QUALITY OF STUDY/CONTRAST BOLUS: Satisfactory. PULMONARY ARTERIES: No central or segmental pulmonary emboli identified. THORACIC AORTA: No aneurysm or dissection. LUN.4 cm right lower lobe lung nodule, suboptimally evaluated due to motion artifact (image 246, series 23). No focal consolidation. PLEURA: No pleural effusion or pneumothorax. MEDIASTINUM: Normal heart size. No pericardial effusion. Normal variant residual thymic tissue. No hilar or mediastinal lymphadenopathy by size criteria. No evidence of septal bowing or right heart strain. CHEST WALL/AXILLA: No axillary or internal mammary lymphadenopathy by size criteria. OSSEOUS STRUCTURES: No acute finding. UPPER ABDOMEN: Please see separately dictated report for CT scan of the abdomen obtained the same day. No reflux of contrast into the hepatic veins to suggest elevated right heart pressures. CT/CT angio chest PE protocol IMPRESSION: Somewhat limited by motion artifact. No evidence of pulmonary embolism. VTE: negative
--- NOTE | ~2022-03-13 | XR_ITS ---
EXAMINATION: XR CHEST CLINICAL INFORMATION: Chest pain and shortness of breath. COMPARISON: 03/14/2021 TECHNIQUE: 2 views of the chest were obtained. FINDINGS: Lungs are well-inflated and clear. Trachea is midline in position. No interstitial disease, consolidation or mass. No pleural effusion or pneumothorax. Cardiac silhouette and pulmonary vessels are normal in size. The mediastinum and alberto have normal contour. The visualized bones, and upper abdomen, are unremarkable. XR/XR chest 2V IMPRESSION: No acute cardiopulmonary abnormality.
[2022-03-13 10:01] VITALS: BP 114/67; BP 128/73; PULSE 110; PULSE 114; RESP 18; TEMP 37.1; O2SAT 98; O2SAT 99; BMI 25.7
[2022-03-13 11:44] LABS: MANUAL DIFF FLAG NO
[2022-03-13 11:46] LABS: Basophils Absolute Auto 0.1 X10*3/uL (0.0-0.2); Basophils Percent Auto 0.3 % (0-2); Eosinophils Absolute Auto 0.1 X10*3/uL (0.0-0.4); Eosinophils Percent Auto 0.3 % (0-4); Hematocrit 44.6 % (42.0-52.0); Hemoglobin 15.1 g/dl (14.0-18.0); Imm Gran Abs Auto 0.08 X10*3/uL (0.00-0.03); Imm Gran Pct Auto 0.4 % (0.0-0.4); Lymphocytes Absolute Auto 0.7 X10*3/uL (1.2-4.9); Lymphocytes Percent Auto 3.6 % (20-40); Mean Corpuscular HGB Conc 33.9 g/dl (31.0-36.0); Mean Corpuscular Hemoglobin 28.9 pg (27.0-33.0); Mean Corpuscular Volume 85.4 fL (80.0-98.0); Mean Platelet Volume 9.3 fL (9.4-12.4); Monocytes Absolute Auto 1.1 X10*3/uL (0.1-1.2); Monocytes Percent Auto 5.7 % (2-11); Neutrophils Absolute Auto 17.8 x10*3/uL (2.0-8.3); Neutrophils Percent Auto 89.7 % (45-73); Platelet Count 231 X10*3/uL (160-400); Red Blood Count 5.22 X10*6/uL (4.60-5.80); Red Cell Distribution Width 12.1 % (11.0-16.0); White Blood Count 19.8 X10*3/uL (4.8-10.8)
[2022-03-13 12:05] LABS: COVID-19 Test Negative (Negative); Prothrombin Time 11.7 SEC (10.0-13.1)
[2022-03-13 12:06] LABS: Troponin-I High Sensitivity < 3.5 ng/L (<3.5-35.0)
[2022-03-13 12:15] LABS: Alanine Aminotransferase 22 U/L (0-40); Albumin Level 3.9 g/dL (3.5-5.0); Alkaline Phosphatase 71 U/L (39-117); Anion Gap 13 (12-20); Aspartate Amino Transferase 17 U/L (5-37); Bilirubin Total 0.4 mg/dL (0.0-1.0); Blood Urea Nitrogen 21 mg/dL (9-16); Calcium 9.1 mg/dL (8.4-10.2); Carbon Dioxide 26 mmol/L (22-29); Chloride 105 mmol/L (96-108); Creatinine Clr Calc Pharmacy 121.9; Estimated Glomerular Filt Rate > 60; Glucose Random 123 mg/dL (60-115); Potassium 4.1 mmol/L (3.3-5.1); Sodium 140 mmol/L (135-145); Total Protein 6.7 g/dL (6.5-8.0)
--- NOTE | 2022-03-13 13:58 | ED_ITS ---
HPI - Chest Pain General Chief Complaint: Chest Pain Stated Complaint: ABDOMINAL PAIN Time Seen by Provider: 03/13/22 10:20 Source: patient and family Mode of arrival: ambulatory Limitations: language barrier ([place]ayan-speaking) History of Present Illness HPI narrative: 37-year-old male who is [place]-speaking who denies any medical history presenting to the ER with complaints of feeling disorientated c head pressure sensation, 1 episode of vomiting, nausea, left-sided chest pain that radiates to his left arm with left arm tingling and shortness of breath that occurred prior to arrival around 09:00. He reports over the past few months he has been having intermittent palpitations. He has not been seen for this. He reports that he did smoke some marijuana although he normally smokes marijuana and feels normal. He denies any other drug usage such as cocaine or heroin or any other drugs. He has set up a primary care appointment for May-June which girlfriend reports to me she is at bedside. although he reports he has not seen a primary care provider in many years. He denies any dizziness, neck pain/stiffness, changes in vision, jaw pain, dyspnea on exertion, orthopnea, palpitations at this time, abdominal pain, back pain, flank pain, dysuria, hematuria, abnormal penile discharge, rashes, recent falls or trauma or head injury, lower extremity edema or calf tenderness or any other symptoms complaints or concerns at this time. MD complaint: chest pain and chest discomfort Onset (ago): hour(s) Timing of current episode: other (Improving per the patient) Prior episodes: Yes (Of palpitations see above) Onset: other (While he was at work) Pain location: left chest Pain radiation: left arm Severity: moderate Quality: aching Relieving factors: nothing Exacerbating factors: nothing Associated symptoms: nausea, vomiting and other (Shortness of breath, nausea and 1 episode of vomiting along with feeling disoriented) Treatment prior to arrival: none Risk Factors Coronary artery disease risk factors: smoking history Thoracic aortic dissection risk factors: none Related Data Previous Rx's Medication Instructions Recorded cyclobenzaprine 10 mg tablet 10 mg PO TID PRN muscle spasm #20 01/09/21 tabs ibuprofen 800 mg tablet 800 mg PO Q8H PRN pain #30 tabs 01/09/21 amoxicillin 500 mg capsule 500 mg PO BID #10 caps 03/14/21 loratadine 10 mg tablet (Claritin) 10 mg PO DAILY PRN allergy 03/14/21 symptoms #20 tabs cyclobenzaprine 10 mg tablet 10 mg PO TID PRN muscle spasm #20 01/07/22 tabs cyclobenzaprine 10 mg tablet 10 mg PO TID PRN muscle spasm #10 01/30/22 tabs ibuprofen 600 mg tablet 600 mg PO Q8H PRN pain #10 tabs 01/30/22 lidocaine 5 % topical patch 1 patch topical DAILY #15 ea 01/30/22 cyclobenzaprine 10 mg tablet 10 mg PO Q8H #14 tabs 02/13/22 ibuprofen 800 mg tablet 800 mg PO Q8H PRN pain #14 tabs 02/13/22 oxycodone 5 mg tablet 5 mg PO Q6H PRN pain #14 tabs 02/13/22 Allergies Allergy/AdvReac Type Severity Reaction Status Date / Time No Known Allergies Allergy Verified 01/07/22 12:49 [No Known Allergies*] Review of Systems Review of Systems: Constitutional : No Weight loss, No Fever, No Chills, No Night Sweats, No Fatigue, No Malaise ENT/Mouth : No Hearing loss, No Ear Pain, No Nasal Congestion, No Sinus Pain, No Hoarseness, No sore throat, No Rhinorrhea, No Swallowing Difficulty Eyes: No Eye Pain, No Swelling, No Redness, No Foreign Body, No Discharge, No Vision Changes Cardiovascular : + Chest Pain, + SOB, No Dyspnea on Exertion, No Orthopnea, No Edema, No Palpitations Respiratory : No Cough, No Sputum, No Wheezing, No Smoke Exposure Gastrointestinal : + Nausea, + Vomiting, No Diarrhea, No Constipation, No abdominal Pain, No Hematochezia, No Melena Genitourinary : no irregular bleeding, No Dysuria, No Urinary Frequency, No Hematuria, No Urinary Incontinence, No Urgency, No Flank Pain, No Urinary Flow Changes, No Hesitancy Musculoskeletal : No joint pain, No Myalgias, No Joint Swelling Skin : No Skin Lesions, No rash Neuro : + feeling disoriented, + head pressure/headache, No Weakness, No Numbness, No Paresthesias, No Loss of Consciousness, No Dizziness Psych : No Anxiety/Panic, No Depression, No SI/HI/AH/VH, No Social Issues, Heme/Lymph: No Bruising, No Bleeding,No Lymphadenopathy Endocrine : No Polyuria, No Polydipsia, No Temperature Intolerance Yes all other systems are reviewed and are negative FOR[facility]LY [facility] Past Medical History Attestation statement: The following information was validated with the patient. Source: old records reviewed, obtained from family and nursing notes reviewed Medical History No known health problems Surgical History No history of previous surgery Social History Social History Alcohol intake: never Advance Directives: No Advance Directives Information Provided: Yes Physical Exam Vital Signs: Vital Signs: Last Vital Signs Temp 98.7 F 03/13/22 10:01 Pulse 69 03/13/22 15:03 Resp 17 03/13/22 15:03 BP 128/73 03/13/22 10:01 Pulse Ox 99 03/13/22 10:01 O2 Del Method 03/13/22 10:01 BMI result Body Mass Index 25.7 Vital signs have been reviewed as normal and appeared to be correct. Blood pressure normal. Heart rate 114. Respiration rate normal. Temperature normal. Oxygen saturation normal. Appearance: Alert. Oriented X3. No acute distress. Head: Normal external exam. Normocephalic. Atraumatic. Able to rotate head bilaterally. Eyes: PERRLA. EOMI. No nystagmus noted. Conjunctiva and sclera normal. Eyelids normal. Corneal reflex normal. ENT: EAC normal. TM's Normal. Hearing normal. Pharynx normal. Uvula midline. tongue midline. Moist mucous membranes. No trismus noted. No drooling noted. No muffled voice noted. No nystagmus noted. Neck: Normal inspection. Neck supple. FROM. No adenopathy. Trachea midline. Thyroid Normal. No meningeal signs. No neck mass noted. CVS: Normal heart rate and rhythm. Heart sound normal. No murmurs noted. Pulses normal throughout. Respiratory: No respiratory distress. Painless inspiration. Breath sounds normal. No wheezes/rales/rhonchi noted. Chest nontender. No accessory muscle usage noted or decreased air movement noted. Abdomen: Soft and nontender. Bowel sounds normal in all 4 quadrants. No distention noted. No organomegaly noted. No visible injury noted. Back: No CVA tenderness. Full range of motion noted. Skin: Skin warm and dry. Normal skin color. Normal skin turgor. No rashes/lesions/lacerations noted. Extremities: No lower extremity edema. Extremities exhibit normal range of motion. Extremities nontender. Able to shrug shoulders bilaterally and keep up against resistance. Neuro: Oriented X 3. No motor deficit. No sensory deficit. Reflexes normal. Moving all extremities. No focal motor deficits. Cranial nerves II-XI intact bilaterally. Facial strength normal. Normal cognition. Speech normal. Gait normal. Strength 5/5 throughout. No pronator drift. No tremor noted. No fasciculations noted. No rigidity noted. Muscle tone normal throughout. No asterixis noted. Sbrnwi-ze-vmpn test normal. Heel to johnson test normal. Tandem gait normal. Does not sway with eyes open. Romberg test negative. Rapid alternating movement upper extremity normal. Rapid alternating movement lower extremity normal. Hand drop from overhead Misses face. NIHSS score 0. Course Course Course Narrative: 11:30am - 37-year-old male who is [place]-speaking who denies any medical history presenting to the ER with complaints of feeling disorientated c head pressure sensation, 1 episode of vomiting, nausea, left-sided chest pain that radiates to his left arm with left arm tingling and shortness of breath that occurred prior to arrival around 09:00. He reports over the past few months he has been having intermittent palpitations. He has not been seen for this. He reports that he did smoke some marijuana although he normally smokes marijuana and feels normal. He denies any other drug usage such as cocaine or heroin or any other drugs. Not a tPA candidate as patient has non disabling symptoms NIH SS score 0 at this time. Normal neuro exam. Plan: Labs, EKG, chest x-ray, UA, drugs of abuse screen, COVID swab and re- evaluate. Reevaluation(s) Reevaluation #1: - patient with leukocytosis of 19,000. BUN 21. Random glucose 123. Total CPK 208. Negative troponin. Otherwise all other labs are within normal limits. - patient negative for COVID. - chest x-ray within normal limits. - therefore at this time will obtain blood cultures, lactic acid obtain a CT scan of brain a CTA of chest and a CT scan abdomen pelvis with IV contrast and re-evaluate. Although patient reports that he is not having any abdominal pain. Time: 14:00 Reevaluation #2: - CT scan of brain within normal limits no acute processes noted. - CTA of chest for PE negative for PE although revealed a 0.4 cm right lower lobe lung nodule otherwise no other acute processes. - CT scan abdomen pelvis without IV contrast negative for any acute processes. - UA revealed a 1000 of glucose otherwise no evidence of UTI. Patient only positive for marijuana negative for all other drugs. - hemoglobin A1c level 5.6. - therefore at this time will DC home instructions follow-up with PCP and to return if any new or worsening symptoms. Patient understands agrees with this plan. Time: 16:[address] [facility] - Chest Pain Medical Records Data Attestation: I reviewed the patient's medical records. Lab Data Attestation: I reviewed the patient's lab results. Result diagrams: 03/13/22 11:39 03/13/22 11:39 Labs: Lab Results 03/13/22 03/13/22 03/13/22 Range/Units 11:39 11:39 11:39 WBC 19.8 H (4.8-10.8) X10*3/uL RBC 5.22 (4.60-5.80) X10*6/uL Hgb 15.1 (14.0-18.0) g/dl Hct 44.6 (42.0-52.0) % MCV 85.4 (80.0-98.0) fL MCH 28.9 (27.0-33.0) pg MCHC 33.9 (31.0-36.0) g/dl RDW 12.1 (11.0-16.0) % Plt Count 231 (160-400) X10*3/uL MPV 9.3 L (9.4-12.4) fL Immature Gran % (Auto) 0.4 (0.0-0.4) % Neut % (Auto) 89.7 H (45-73) % Lymph % (Auto) 3.6 L (20-40) % Rabun % (Auto) 5.7 (2-11) % Eos % (Auto) 0.3 (0-4) % Baso % (Auto) 0.3 (0-2) % Lymph # (Auto) 0.7 L (1.2-4.9) X10*3/uL [place] # (Auto) 1.1 (0.1-1.2) X10*3/uL Eos # (Auto) 0.1 (0.0-0.4) X10*3/uL Baso # (Auto) 0.1 (0.0-0.2) X10*3/uL Abs Immat Gran (auto) 0.08 H (0.00-0.03) X10*3/uL Absolute Neuts (auto) 17.8 H (2.0-8.3) x10*3/uL Absolute Nucleated RBC 0.000 (0.0-0.012) X10*3/uL Nucleated RBC % (auto) 0.0 (0.0-0.2) /100WBC PT 11.7 (10.0-13.1) SEC INR 1.0 (0.9-1.1) Sodium 140 (135-145) mmol/L Potassium 4.1 (3.3-5.1) mmol/L Chloride 105 (96-108) mmol/L Carbon Dioxide 26 (22-29) mmol/L Anion Gap 13 (12-20) BUN 21 H (9-16) mg/dL Creatinine 0.91 (0.5-1.4) mg/dL Estim Creat Clear Calc 121.9 Estimated GFR > 60 Random Glucose 123 H (60-115) mg/dL Estimat Average Glucose mg/dL Hemoglobin A1c % % Lactic Acid (0.5-2.0) mmol/L Calcium 9.1 (8.4-10.2) mg/dL Magnesium 2.0 (1.6-2.6) mg/dL Total Bilirubin 0.4 (0.0-1.0) mg/dL AST 17 (5-37) U/L ALT 22 (0-40) U/L Alkaline Phosphatase 71 (39-117) U/L Total Creatine Kinase 208 H (38-174) U/L Troponin I High Sens (<3.5-35.0) ng/L Total Protein 6.7 (6.5-8.0) g/dL Albumin 3.9 (3.5-5.0) g/dL Urine Color Urine Appearance Urine pH (5.0-9.0) Ur Specific [place] (1.005-1.025) Urine Protein (Neg-Trace) mg/dL Urine Glucose (UA) (Negative) mg/dL Urine Ketones (Negative) mg/dL Urine Blood (Negative) Urine Nitrite (Negative) Ur Leukocyte Esterase (Negative) Urine RBC (0-2) /HPF Urine WBC (0-5) /HPF Ur Squamous Epith Cells (0-2) /HPF Urine Bacteria (None Seen) Hyaline Casts (0-2) /LPF Urine Opiates Screen (Not Detect) Urine Fentanyl Screen (Not Detect) Ur Barbiturates Screen (Not Detect) Ur Phencyclidine Scrn (Not Detect) Ur Amphetamines Screen (Not Detect) U Benzodiazepines Scrn (Not Detect) Urine Cocaine Screen (Not Detect) U Marijuana (THC) Screen (Not Detect) COVID-19 (ANASTACIA) (Negative) COVID-19 Clin Com 03/13/22 03/13/22 03/13/22 Range/Units 11:39 11:39 11:39 WBC (4.8-10.8) X10*3/uL RBC (4.60-5.80) X10*6/uL Hgb (14.0-18.0) g/dl Hct (42.0-52.0) % MCV (80.0-98.0) fL MCH (27.0-33.0) pg MCHC (31.0-36.0) g/dl RDW (11.0-16.0) % Plt Count (160-400) X10*3/uL MPV (9.4-12.4) fL Immature Gran % (Auto) (0.0-0.4) % Neut % (Auto) (45-73) % Lymph % (Auto) (20-40) % Rabun % (Auto) (2-11) % Eos % (Auto) (0-4) % Baso % (Auto) (0-2) % Lymph # (Auto) (1.2-4.9) X10*3/uL Rab[place] # (Auto) (0.1-1.2) X10*3/uL Eos # (Auto) (0.0-0.4) X10*3/uL Baso # (Auto) (0.0-0.2) X10*3/uL Abs Immat Gran (auto) (0.00-0.03) X10*3/uL Absolute Neuts (auto) (2.0-8.3) x10*3/uL Absolute Nucleated RBC (0.0-0.012) X10*3/uL Nucleated RBC % (auto) (0.0-0.2) /100WBC PT (10.0-13.1) SEC INR (0.9-1.1) Sodium (135-145) mmol/L Potassium (3.3-5.1) mmol/L Chloride (96-108) mmol/L Carbon Dioxide (22-29) mmol/L Anion Gap (12-20) BUN (9-16) mg/dL Creatinine (0.5-1.4) mg/dL Estim Creat Clear Calc Estimated GFR Random Glucose (60-115) mg/dL Estimat Average Glucose 108 mg/dL Hemoglobin A1c % 5.4 % Lactic Acid (0.5-2.0) mmol/L Calcium (8.4-10.2) mg/dL Magnesium (1.6-2.6) mg/dL Total Bilirubin (0.0-1.0) mg/dL AST (5-37) U/L ALT (0-40) U/L Alkaline Phosphatase (39-117) U/L Total Creatine Kinase (38-174) U/L Troponin I High Sens < 3.5 (<3.5-35.0) ng/L Total Protein (6.5-8.0) g/dL Albumin (3.5-5.0) g/dL Urine Color Urine Appearance Urine pH (5.0-9.0) Ur Specific [place] (1.005-1.025) Urine Protein (Neg-Trace) mg/dL Urine Glucose (UA) (Negative) mg/dL Urine Ketones (Negative) mg/dL Urine Blood (Negative) Urine Nitrite (Negative) Ur Leukocyte Esterase (Negative) Urine RBC (0-2) /HPF Urine WBC (0-5) /HPF Ur Squamous Epith Cells (0-2) /HPF Urine Bacteria (None Seen) Hyaline Casts (0-2) /LPF Urine Opiates Screen (Not Detect) Urine Fentanyl Screen (Not Detect) Ur Barbiturates Screen (Not Detect) Ur Phencyclidine Scrn (Not Detect) Ur Amphetamines Screen (Not Detect) U Benzodiazepines Scrn (Not Detect) Urine Cocaine Screen (Not Detect) U Marijuana (THC) Screen (Not Detect) COVID-19 (ANASATCIA) Negative (Negative) COVID-19 Clin Com See Note 03/13/22 03/13/22 03/13/22 Range/Units 14:27 14:27 14:28 WBC (4.8-10.8) X10*3/uL RBC (4.60-5.80) X10*6/uL Hgb (14.0-18.0) g/dl Hct (42.0-52.0) % MCV (80.0-98.0) fL MCH (27.0-33.0) pg MCHC (31.0-36.0) g/dl RDW (11.0-16.0) % Plt Count (160-400) X10*3/uL MPV (9.4-12.4) fL Immature Gran % (Auto) (0.0-0.4) % Neut % (Auto) (45-73) % Lymph % (Auto) (20-40) % Rabun % (Auto) (2-11) % Eos % (Auto) (0-4) % Baso % (Auto) (0-2) % Lymph # (Auto) (1.2-4.9) X10*3/uL [place] # (Auto) (0.1-1.2) X10*3/uL Eos # (Auto) (0.0-0.4) X10*3/uL Baso # (Auto) (0.0-0.2) X10*3/uL Abs Immat Gran (auto) (0.00-0.03) X10*3/uL Absolute Neuts (auto) (2.0-8.3) x10*3/uL Absolute Nucleated RBC (0.0-0.012) X10*3/uL Nucleated RBC % (auto) (0.0-0.2) /100WBC PT (10.0-13.1) SEC INR (0.9-1.1) Sodium (135-145) mmol/L Potassium (3.3-5.1) mmol/L Chloride (96-108) mmol/L Carbon Dioxide (22-29) mmol/L Anion Gap (12-20) BUN (9-16) mg/dL Creatinine (0.5-1.4) mg/dL Estim Creat Clear Calc Estimated GFR Random Glucose (60-115) mg/dL Estimat Average Glucose mg/dL Hemoglobin A1c % % Lactic Acid 1.4 (0.5-2.0) mmol/L Calcium (8.4-10.2) mg/dL Magnesium (1.6-2.6) mg/dL Total Bilirubin (0.0-1.0) mg/dL AST (5-37) U/L ALT (0-40) U/L Alkaline Phosphatase (39-117) U/L Total Creatine Kinase (38-174) U/L Troponin I High Sens < 3.5 (<3.5-35.0) ng/L Total Protein (6.5-8.0) g/dL Albumin (3.5-5.0) g/dL Urine Color Yellow Urine Appearance Clear Urine pH 6.0 (5.0-9.0) Ur Specific [place] >= 1.030 H (1.005-1.025) Urine Protein Trace (Neg-Trace) mg/dL Urine Glucose (UA) >=1000 H (Negative) mg/dL Urine Ketones Trace (Negative) mg/dL Urine Blood Negative (Negative) Urine Nitrite Negative (Negative) Ur Leukocyte Esterase Negative (Negative) Urine RBC 0-2 (0-2) /HPF Urine WBC 0-5 (0-5) /HPF Ur Squamous Epith Cells 0-2 (0-2) /HPF Urine Bacteria None Seen (None Seen) Hyaline Casts 0-2 (0-2) /LPF Urine Opiates Screen (Not Detect) Urine Fentanyl Screen (Not Detect) Ur Barbiturates Screen (Not Detect) Ur Phencyclidine Scrn (Not Detect) Ur Amphetamines Screen (Not Detect) U Benzodiazepines Scrn (Not Detect) Urine Cocaine Screen (Not Detect) U Marijuana (THC) Screen (Not Detect) COVID-19 (ANASTACIA) (Negative) COVID-19 Clin Com 03/13/22 Range/Units 14:28 WBC (4.8-10.8) X10*3/uL RBC (4.60-5.80) X10*6/uL Hgb (14.0-18.0) g/dl Hct (42.0-52.0) % MCV (80.0-98.0) fL MCH (27.0-33.0) pg MCHC (31.0-36.0) g/dl RDW (11.0-16.0) % Plt Count (160-400) X10*3/uL MPV (9.4-12.4) fL Immature Gran % (Auto) (0.0-0.4) % Neut % (Auto) (45-73) % Lymph % (Auto) (20-40) % [place] % (Auto) (2-11) % Eos % (Auto) (0-4) % Baso % (Auto) (0-2) % Lymph # (Auto) (1.2-4.9) X10*3/uL [place] # (Auto) (0.1-1.2) X10*3/uL Eos # (Auto) (0.0-0.4) X10*3/uL Baso # (Auto) (0.0-0.2) X10*3/uL Abs Immat Gran (auto) (0.00-0.03) X10*3/uL Absolute Neuts (auto) (2.0-8.3) x10*3/uL Absolute Nucleated RBC (0.0-0.012) X10*3/uL Nucleated RBC % (auto) (0.0-0.2) /100WBC PT (10.0-13.1) SEC INR (0.9-1.1) Sodium (135-145) mmol/L Potassium (3.3-5.1) mmol/L Chloride (96-108) mmol/L Carbon Dioxide (22-29) mmol/L Anion Gap (12-20) BUN (9-16) mg/dL Creatinine (0.5-1.4) mg/dL Estim Creat Clear Calc Estimated GFR Random Glucose (60-115) mg/dL Estimat Average Glucose mg/dL Hemoglobin A1c % % Lactic Acid (0.5-2.0) mmol/L Calcium (8.4-10.2) mg/dL Magnesium (1.6-2.6) mg/dL Total Bilirubin (0.0-1.0) mg/dL AST (5-37) U/L ALT (0-40) U/L Alkaline Phosphatase (39-117) U/L Total Creatine Kinase (38-174) U/L Troponin I High Sens (<3.5-35.0) ng/L Total Protein (6.5-8.0) g/dL Albumin (3.5-5.0) g/dL Urine Color Urine Appearance Urine pH (5.0-9.0) Ur Specific [place] (1.005-1.025) Urine Protein (Neg-Trace) mg/dL Urine Glucose (UA) (Negative) mg/dL Urine Ketones (Negative) mg/dL Urine Blood (Negative) Urine Nitrite (Negative) Ur Leukocyte Esterase (Negative) Urine RBC (0-2) /HPF Urine WBC (0-5) /HPF Ur Squamous Epith Cells (0-2) /HPF Urine Bacteria (None Seen) Hyaline Casts (0-2) /LPF Urine Opiates Screen Not Detected (Not Detect) Urine Fentanyl Screen Not Detected (Not Detect) Ur Barbiturates Screen Not Detected (Not Detect) Ur Phencyclidine Scrn Not Detected (Not Detect) Ur Amphetamines Screen Not Detected (Not Detect) U Benzodiazepines Scrn Not Detected (Not Detect) Urine Cocaine Screen Not Detected (Not Detect) U Marijuana (THC) Screen POSITIVE H (Not Detect) COVID-19 (ANASTACIA) (Negative) COVID-19 Clin Com Imaging Data Chest x-ray: Attestation: I personally reviewed and interpreted this imaging study as follows: Radiologist's impression: FINDINGS: Lungs are well-inflated and clear. Trachea is midline in position. No interstitial disease, consolidation or mass. No pleural effusion or pneumothorax.? Cardiac silhouette and pulmonary vessels are normal in size. The mediastinum and alberto have normal contour. The visualized bones, and upper abdomen, are unremarkable. XR/XR chest 2V IMPRESSION: No acute cardiopulmonary abnormality. CT scan of brain without contrast: Attestation: I personally reviewed and interpreted this imaging study as follows: Radiologist's impression: FINDINGS: No intra or extra-axial fluid collection, hemorrhage, or mass. No ventriculomegaly. No midline shift or herniation. Basal cisterns are patent. Frazier-white matter differentiation is maintained. No territorial encephalomalacia. ?No significant volume loss. There is no abnormal attenuation within the brain parenchyma. No calvarial fracture or soft tissue abnormality. ?The mastoid air cells and visualized portions of the paranasal sinuses are well aerated. CT/CT head/brain wo IV con IMPRESSION: 1. No acute intracranial pathology. ? CT scan abdomen pelvis without IV contrast: Attestation: I personally reviewed and interpreted this imaging study as follows: Radiologist's impression: FINDINGS: LUNG BASES: Please see separately dictated report for chest CT obtained the same day.? LIVER, GALLBLADDER, AND BILIARY TREE: The liver appears unremarkable in size, shape, and attenuation. No focal hepatic lesion or biliary ductal dilatation is appreciated. Unremarkable appearance of the gallbladder. PANCREAS: Unremarkable? SPLEEN: Unremarkable? ADRENAL GLANDS: Unremarkable? KIDNEYS AND URETERS: The kidneys appear unremarkable in size, shape, and attenuation. No hydronephrosis, hydroureter, or calculi seen. ? BLADDER: Unremarkable? GASTROINTESTINAL TRACT: The small and large bowel appear unremarkable. No diverticulosis. Normal-appearing distal ileum and vermiform appendix.? ABDOMINAL WALL: No significant hernia is appreciated.? LYMPH NODES: No evidence of adenopathy by size criteria. VASCULAR: Unremarkable PELVIC VISCERA: Unremarkable OSSEOUS STRUCTURES: Unremarkable? CT/CT abdomen pelvis w IV con IMPRESSION: ? Normal CT scans of the abdomen and pelvis with intravenous contrast only. CTA of chest for PE: Attestation: I personally reviewed and interpreted this imaging study as follows: Radiologist's impression: Please note that the IMPRESSION should also contain the followin.4 cm right lower lobe lung nodule, suboptimally evaluated due to motion artifact. As per Fleischner Society guidelines, if the patient is at high risk (for example, known or suspected malignancy, history of smoking, etc.), repeat CT scan of the chest at 6-12 months? then at 18-24 months from baseline exam (if no change) is recommended for further evaluation.? If the patient is not at high risk, repeat CT scan of the chest in one year is recommended for further evaluation.? Addendum Dictated By: Joselo Last Addendum Signed By: <Electronically signed by Joselo Last in OV> 03/13/22 4423 Addendum Cosigned By: DD/ /27/1417 TD/TT: / EXAMINATION: CT ANGIOGRAM OF THE CHEST WITH AND WITHOUT CONTRAST (CT PULMONARY ANGIOGRAM FOR PE) CLINICAL INFORMATION: Reason for Exam pt c chest pain/sob/vomiting COMPARISON: None? TECHNIQUE: Prior to contrast administration, noncontrast localization images were obtained. ? Subsequently, multidetector volumetric imaging was performed from the thoracic inlet to below the diaphragms following the administration of 85 mL Omnipaque 350 intravenous contrast. No contrast reaction reported Sagittal, coronal, and MIP oblique sagittal reformatted images were obtained on the CT workstation, uploaded to PACS, and reviewed. This CT examination was performed using dose optimization techniques as appropriate, variously including the following: *Automated exposure control *Adjustment of mA and/or kV according to patient size (this includes techniques or standardized protocols for targeted exams where dose is matched to indication/reason for exam; i.e. extremities or head) *Use of iterative reconstruction technique Total exam dose-length product 1733 mGy-cm FINDINGS: Somewhat limited by motion artifact. QUALITY OF STUDY/CONTRAST BOLUS: Satisfactory. PULMONARY ARTERIES: No central or segmental pulmonary emboli identified.? THORACIC AORTA: No aneurysm or dissection. LUN.4 cm right lower lobe lung nodule, suboptimally evaluated due to motion artifact (image 246, series 23). No focal consolidation. PLEURA: No pleural effusion or pneumothorax. MEDIASTINUM: Normal heart size.? No pericardial effusion. Normal variant residual thymic tissue. No hilar or mediastinal lymphadenopathy by size criteria.? No evidence of septal bowing or right heart strain. CHEST WALL/AXILLA: No axillary or internal mammary lymphadenopathy by size criteria. OSSEOUS STRUCTURES: No acute finding.? UPPER ABDOMEN: Please see separately dictated report for CT scan of the abdomen obtained the same day.? No reflux of contrast into the hepatic veins to suggest elevated right heart pressures. CT/CT angio chest PE protocol IMPRESSION: ? Somewhat limited by motion artifact. ? No evidence of pulmonary embolism. ? ? ? VTE: negative ECG Data ECG #1: Attestation: I personally reviewed and interpreted this ECG as follows: ECG interpretation date: 03/13/22 ECG interpretation time: 10:26 Prior ECG tracings: available for review Interpretation: EKG normal sinus rhythm and a ventricular rate of 96 with a normal ND interval normal QRS duration normal QT/QTC interval. No acute ischemic change are noted. Similar compared to prior EKG on 03/14/2021. Critical Care Time Critical Care Time Critical Care Time: Yes Total Critical Care Time: 60 Attestation: I personally attest to this time spent taking care of the patient Discharge Plan Discharge Clinical Impression: Atypical chest pain, Pulmonary nodule, Headache, Leukocytosis Patient Disposition: Home, Self-Care Instructions: Chest Pain (ED), Pulmonary Nodules (ED), General Headache (ED) Prescriptions: No Action ibuprofen 800 mg tablet 800 mg PO Q8H PRN (Reason: pain) Qty: 30 0RF cyclobenzaprine 10 mg tablet 10 mg PO TID PRN (Reason: muscle spasm) Qty: 20 0RF cyclobenzaprine 10 mg tablet 10 mg PO TID PRN (Reason: muscle spasm) Qty: 20 0RF cyclobenzaprine 10 mg tablet 10 mg PO TID PRN (Reason: muscle spasm) Qty: 10 0RF ibuprofen 600 mg tablet 600 mg PO Q8H PRN (Reason: pain) Qty: 10 0RF lidocaine 5 % adhesive patch,medicated 1 patch topical DAILY Qty: 15 0RF Rx Instructions: leave on most painful area for up to 12 hrs amoxicillin 500 mg capsule 500 mg PO BID Qty: 10 0RF loratadine [Claritin] 10 mg tablet 10 mg PO DAILY PRN (Reason: allergy symptoms) Qty: 20 0RF ibuprofen 800 mg tablet 800 mg PO Q8H PRN (Reason: pain) Qty: 14 0RF cyclobenzaprine 10 mg tablet 10 mg PO Q8H Qty: 14 0RF oxycodone 5 mg tablet 5 mg PO Q6H PRN (Reason: pain) Qty: 14 0RF Rx Instructions: Partial Fill upon patient request. Referrals: [facility] [Provider Group] [facility] [place] [facility] [Provider Group] [facility] [place] [facility] [[facility]] [facility] [place] [facility] [Provider Group] Stand Alone Forms: Work/School Release Interventions: ED Discharge Assessment Last Done: 03/13/22 16:46 Discharge Date/Time: 03/13/22 16:47 Print Language: Paraguayan
[2022-03-13 14:36] LABS: Appearance Urine Clear; Color Urine Yellow; Glucose Urine UA >=1000 mg/dL (Negative); Leukocyte Esterase Urine Negative (Negative); Nitrite Urine Negative (Negative); Specific Gravity - Urine >= 1.030 (1.005-1.025); UMIC TRIGGER UACC YES; Urine Blood Negative (Negative); Urine Ketones Trace mg/dL (Negative); Urine Protein Trace mg/dL (Neg-Trace)
[2022-03-13 14:43] LABS: Bacteria Urine None Seen (None Seen); Hyaline Casts Urine 0-2 /LPF (0-2); RBC Urine 0-2 /HPF (0-2); Squamous Epithelial Cell Urine 0-2 /HPF (0-2); WBC Urine 0-5 /HPF (0-5)
[2022-03-13 14:55] LABS: Amphetamine Screen Urine Not Detected (Not Detect); Barbiturates, Urine Not Detected (Not Detect); Benzodiazepines Screen Urine Not Detected (Not Detect); Cannabinoid Screen Urine POSITIVE (Not Detect); Cocaine Screen Urine Not Detected (Not Detect); Fentanyl, urine Not Detected (Not Detect); Opiate Screen Urine Not Detected (Not Detect); Phencyclidine Screen Urine Not Detected (Not Detect)
[2022-03-13 14:58] LABS: Lactic Acid 1.4 mmol/L (0.5-2.0)
[2022-03-13] MEDS: 0.9 % Sodium Chloride 1,000 ML 999 ML IVCONT (15:02)
[2022-03-13 15:03] VITALS: PULSE 69; RESP 17
[2022-03-13 15:08] LABS: Troponin-I High Sensitivity < 3.5 ng/L (<3.5-35.0)
[2022-03-13 15:26] LABS: Estimated Average Glucose 108 mg/dL; Hemoglobin A1c % 5.4 %
== END 2022-03-13 16:47 | disposition home or self-care (01) ==
PROVIDERS: Physician Assistant Medical; Emergency Provider Emergency Medicine Emergency Medical Services
DX: R07.89 Other chest pain (principal); R51.9 Headache, unspecified; D72.829 Elevated white blood cell count, unspecified; R91.1 Solitary pulmonary nodule; F12.90 Cannabis use, unspecified, uncomplicated; Z20.822 Contact with and (suspected) exposure to COVID-19
CPT/HCPCS: 36415; 70450; 71046; 71275; 74177; 80053; 80307; 81001; 82550; 83036; 83605; 83735; 84484; 85025; 85610; 87040; 87635; 93005; 99284

== ENCOUNTER 2022-04-15 08:21 | Emergency (ER) | payer OTHER, SELFPAY ==
[2022-04-15 08:26] VITALS: BP 139/79; PULSE 96; RESP 20; TEMP 37.1; O2SAT 99; BMI 29.8
[2022-04-15 08:52] LABS: IDNOW Serial# 9DB6401D; Influenza A Negative (Negative); Influenza B2 Negative (Negative)
[2022-04-15 09:06] LABS: COVID-19 Test Negative (Negative); IDNOW Serial# 55D5AD1C
--- NOTE | 2022-04-15 09:59 | ED.GENADULT ---
HPI - General Adult General Chief complaint: Upper Respiratory Symptoms Stated complaint: Cough/Headache/Sore throat Time Seen by Provider: 04/15/22 09:17 Source: patient Mode of arrival: ambulatory Limitations: no limitations History of Present Illness HPI narrative: 37-year-old male presents to ED for coughing, nasal congestion, many aches, and sinus pressure. Patient denies any chest pain. Patient denies any leg swelling, calf pain, or coughing up blood. Related Data Previous Rx's Medication Instructions Recorded cyclobenzaprine 10 mg tablet 10 mg PO TID PRN muscle spasm #20 01/09/21 tabs ibuprofen 800 mg tablet 800 mg PO Q8H PRN pain #30 tabs 01/09/21 amoxicillin 500 mg capsule 500 mg PO BID #10 caps 03/14/21 loratadine 10 mg tablet (Claritin) 10 mg PO DAILY PRN allergy 03/14/21 symptoms #20 tabs cyclobenzaprine 10 mg tablet 10 mg PO TID PRN muscle spasm #20 01/07/22 tabs cyclobenzaprine 10 mg tablet 10 mg PO TID PRN muscle spasm #10 01/30/22 tabs ibuprofen 600 mg tablet 600 mg PO Q8H PRN pain #10 tabs 01/30/22 lidocaine 5 % topical patch 1 patch topical DAILY #15 ea 01/30/22 cyclobenzaprine 10 mg tablet 10 mg PO Q8H #14 tabs 02/13/22 ibuprofen 800 mg tablet 800 mg PO Q8H PRN pain #14 tabs 02/13/22 oxycodone 5 mg tablet 5 mg PO Q6H PRN pain #14 tabs 02/13/22 albuterol sulfate 90 mcg/actuation 2 puff inhalation Q4-6H PRN 04/15/22 aerosol inhaler shortness of breath or wheezing #8.5 grams azithromycin 250 mg tablet See Rx Instructions PO .COMPLEX #6 04/15/22 tabs benzonatate 100 mg capsule 100 mg PO TID PRN cough 5 days #15 04/15/22 caps Allergies Allergy/AdvReac Type Severity Reaction Status Date / Time No Known Allergies Allergy Verified 01/07/22 12:49 [No Known Allergies*] Review of Systems Review of Systems: COugh, sinus pressure, headache, nasal congestion Yes all other systems are reviewed and are negative PMFSH Past Medical History Medical History No known health problems Surgical History No history of previous surgery Social History Social History Alcohol intake: current Alcohol intake frequency: a few times a month Smoked in Last 30 Days: Yes Use of substances other than those prescribed or required for medical reasons: No Advance Directives: No Advance Directives Information Provided: Yes Physical Exam ED Vital Signs: Vital Signs - 24 hr 04/15/22 08:26 04/15/22 10:17 04/15/22 10:17 Temperature 98.8 F Pulse Rate 96 92 Respiratory Rate 20 18 Blood Pressure 139/79 121/74 Pulse Oximetry 99 100 100 Oxygen Delivery Method Room Air Room Air Room Air BMI result Body Mass Index 29.8 Const General: cooperative, healthy appearing, comfortable, no acute distress, well developed, alert, awake and Physically active Orientation/consciousness: oriented to time and patient oriented x3 HENMT Head: Yes normal to inspection, Yes No palpable skull fracture present, Yes normocephalic, Yes atraumatic and No abrasion Ears: hearing grossly normal bilaterally, external ears normal, TM's normal bilaterally, TM normal on the left, mastoids normal and no periauricular adenopathy Face and sinus: Yes normal facial exam and Yes sinuses nontender Throat: Yes posterior oropharynx normal, Yes tonsils normal and Yes uvula midline Eyes General: appearance normal, both eyes and all related structures Neck Neck: Yes normal visual inspection, Yes full ROM, Yes no lymphadenopathy, Yes no meningeal signs, Yes trachea midline, Yes supple, No anterior neck swelling and No tender Chest Chest palpation & inspection: normal inspection of the chest and normal palpation of entire chest wall Resp Effort & Inspection: normal respiratory effort and able to speak in complete sentences Auscultation: wheezes expiratory wheezes (mild) Cardio Jugular venous distension: no JVD Heart sounds: S1 normal heart sound present and S2 normal heart sound present GI Inspection: Yes normal to inspection and No abdominal wall ecchymosis Palpation (GI): Soft to palpation, not firm, nontender, no guarding and not rigid General: No CVA tenderness and Yes no CVA tenderness Back/Spine/Pelvis Back: no CVA tenderness, No CVA tenderness and No back tenderness Skin General skin exam: no rashes or lesions noted and elasticity normal Neuro General: oriented to time, patient oriented x3, gait normal and no meningeal signs Cranial nerves: Yes CN's II-XII intact bilaterally Extrem Other: Lower extremities negative for swelling, pitting edema, calf tenderness General: Yes normal to inspection and Yes full ROM Psych Appearance: grossly normal, well kempt and not disheveled Course Course Course Narrative: COVID influenza swab ordered Reevaluation(s) Reevaluation #1: Patient's COVID swab influenza swab negative. Lungs mild wheezing. Will discharge with albuterol inhaler gentamicin and Tessalon Perles. Bronchitis Time: 10:04 Bronchitis Medical Decision Making Lab Data Labs: Lab Results 04/15/22 04/15/22 Range/Units 08:31 08:31 COVID-19 ([facility]) Negative (Negative) COVID-19 Clin Com See Note Influenza Type A ([facility]ERVE) Negative (Negative) Influenza Type B ([facility]ERVE) Negative (Negative) Influenza A & B Note See Note Discharge Plan Discharge Clinical Impression: Bronchitis Patient Disposition: Home, Self-Care Instructions: How to Use a Metered-Dose Inhaler (ED), Acute Bronchitis (ED) Additional Instructions: Se le tratar? muriel bronquitis. Se le daniela? de ni con un inhalador de albuterol, azitromicina y Tessalon Perles. Regrese al servicio de urgencias de inmediato por cualquier dolor en el pecho, dificultad para respirar, tos con trish, hinchaz?n de las piernas, dolor en la pantorrilla, debilidad, mareos, inspiraciones de dolor en el pecho, mareos, debilidad o cualquier otro s?ntoma preocupante. Siga al proveedor de atenci?n primaria. Prescriptions: New albuterol sulfate 90 mcg/actuation HFA aerosol inhaler 2 puff inhalation Q4-6H PRN (Reason: shortness of breath or wheezing) Qty: 8.5 0RF azithromycin 250 mg tablet See Rx Instructions .ROUTE .COMPLEX Qty: 6 0RF Rx Instructions: For 250 mg dose pack: take 500 mg today (day 1), then 250 mg for 4 days (days 2-5) benzonatate 100 mg capsule 100 mg PO TID PRN (Reason: cough) 5 Days Qty: 15 0RF No Action ibuprofen 800 mg tablet 800 mg PO Q8H PRN (Reason: pain) Qty: 30 0RF cyclobenzaprine 10 mg tablet 10 mg PO TID PRN (Reason: muscle spasm) Qty: 20 0RF cyclobenzaprine 10 mg tablet 10 mg PO TID PRN (Reason: muscle spasm) Qty: 20 0RF cyclobenzaprine 10 mg tablet 10 mg PO TID PRN (Reason: muscle spasm) Qty: 10 0RF ibuprofen 600 mg tablet 600 mg PO Q8H PRN (Reason: pain) Qty: 10 0RF lidocaine 5 % adhesive patch,medicated 1 patch topical DAILY Qty: 15 0RF Rx Instructions: leave on most painful area for up to 12 hrs amoxicillin 500 mg capsule 500 mg PO BID Qty: 10 0RF loratadine [Claritin] 10 mg tablet 10 mg PO DAILY PRN (Reason: allergy symptoms) Qty: 20 0RF ibuprofen 800 mg tablet 800 mg PO Q8H PRN (Reason: pain) Qty: 14 0RF cyclobenzaprine 10 mg tablet 10 mg PO Q8H Qty: 14 0RF oxycodone 5 mg tablet 5 mg PO Q6H PRN (Reason: pain) Qty: 14 0RF Rx Instructions: Partial Fill upon patient request. Stand Alone Forms: Work/School Release Interventions: ED Discharge Assessment Last Done: 04/15/22 10:25 Discharge Date/Time: 04/15/22 10:26 Print Language: Belarusian
[2022-04-15 10:17] VITALS: BP 121/74; PULSE 92; RESP 18; O2SAT 100
== END 2022-04-15 10:26 | disposition home or self-care (01) ==
PROVIDERS: Emergency Provider Emergency Medicine Emergency Medical Services
DX: J40 Bronchitis, not specified as acute or chronic (principal); Z20.822 Contact with and (suspected) exposure to COVID-19
CPT/HCPCS: 87502; 87635; 99283; 99284

== ENCOUNTER 2023-01-06 10:16 | Emergency (ER) | payer OTHER, SELFPAY ==
--- NOTE | ~2023-01-06 | US_ITS ---
EXAMINATION: US ABDOMEN LIMITED CLINICAL INFORMATION: Epigastric pain. COMPARISON: None available. TECHNIQUE: Real-time imaging of the right upper quadrant abdominal viscera. FINDINGS: PANCREAS: Visualized portions unremarkable. LIVER: Visualized portions unremarkable. GALLBLADDER: Small echogenic focus along the superficial wall near the fundus measures 0.3 cm. No other intramural abnormality. No mural thickening or pericholecystic fluid. COMMON BILE DUCT: Normal in caliber measuring 0.4 cm in diameter. FREE FLUID: None. US/US abdomen limited IMPRESSION: 0.3 cm echogenic focus along the superficial wall of the gallbladder is nonspecific, but could represent a small polyp. No other significant abnormality. This can be monitored for change with a right upper quadrant ultrasound in one year. No definitive acute abnormality.
[2023-01-06 10:26] VITALS: BP 111/64; PULSE 73; RESP 20; TEMP 36.2; O2SAT 97; BMI 30.8
[2023-01-06 10:52] LABS: MANUAL DIFF FLAG NO
[2023-01-06 10:53] LABS: Basophils Percent Auto 0.4 % (0-2); Eosinophils Absolute Auto 0.1 X10*3/uL (0.0-0.4); Eosinophils Percent Auto 1.1 % (0-4); Hematocrit 44.5 % (42.0-52.0); Imm Gran Abs Auto 0.02 X10*3/uL (0.00-0.03); Imm Gran Pct Auto 0.2 % (0.0-0.4); Lymphocytes Absolute Auto 1.7 X10*3/uL (1.2-4.9); Lymphocytes Percent Auto 18.6 % (20-40); Mean Corpuscular HGB Conc 33.7 g/dl (31.0-36.0); Mean Corpuscular Hemoglobin 28.5 pg (27.0-33.0); Mean Corpuscular Volume 84.6 fL (80.0-98.0); Mean Platelet Volume 9.2 fL (9.4-12.4); Monocytes Absolute Auto 0.5 X10*3/uL (0.1-1.2); Monocytes Percent Auto 5.4 % (2-11); Neutrophils Absolute Auto 6.7 x10*3/uL (2.0-8.3); Neutrophils Percent Auto 74.3 % (45-73); Platelet Count 267 X10*3/uL (160-400); Red Blood Count 5.26 X10*6/uL (4.60-5.80); Red Cell Distribution Width 11.9 % (11.0-16.0); White Blood Count 9.1 X10*3/uL (4.8-10.8)
[2023-01-06 11:05] LABS: Alanine Aminotransferase 24 U/L (0-40); Alkaline Phosphatase 74 U/L (39-117); Anion Gap 15 (12-20); Appearance Urine Clear; Aspartate Amino Transferase 15 U/L (5-37); Bilirubin Direct 0.2 mg/dL (0.0-0.5); Bilirubin Total 0.5 mg/dL (0.0-1.0); Blood Urea Nitrogen 14 mg/dL (9-16); Calcium 9.5 mg/dL (8.4-10.2); Carbon Dioxide 24 mmol/L (22-29); Chloride 108 mmol/L (96-108); Color Urine Yellow; Estimated Glomerular Filt Rate > 60; Glucose Random 101 mg/dL (60-115); Glucose Urine UA Negative (Negative); Leukocyte Esterase Urine Negative (Negative); Nitrite Urine Negative (Negative); Potassium 3.7 mmol/L (3.3-5.1); Sodium 143 mmol/L (135-145); Specific Gravity - Urine >= 1.030 (1.005-1.025); Total Protein 7.1 g/dL (6.5-8.0); Urine Blood Negative (Negative); Urine Ketones Trace mg/dL (Negative); Urine Protein Trace mg/dL (Neg-Trace)
--- NOTE | 2023-01-06 11:10 | PC.NURSE ---
pt a&ox3. respirations even and unlabored. abdomen soft but tender to touch in the epigastric region. pt reporting abdominal pain since jamal, pt states the pain gets better when taking antacids but gets worse when he eats. denies n/v.
[2023-01-06] MEDS: Ketorolac Tromethamine 30 MG/ML VIAL IM (11:45)
[2023-01-06] MEDS: Famotidine 20 MG TABLET PO (11:45)
[2023-01-06 12:08] LABS: Lipase 10 U/L (8-78)
[2023-01-06 13:21] VITALS: BP 128/84; PULSE 64; RESP 16; O2SAT 99
--- NOTE | 2023-01-06 16:00 | ED.ABDPAIN ---
HPI - Abdominal Pain General Chief Complaint: Abdominal Pain Stated Complaint: Abd pain Time Seen by Provider: 01/06/23 11:10 Source: patient Mode of arrival: ambulatory Limitations: no limitations History of Present Illness HPI narrative: 37-year-old male presents with abdominal pain. The pain is located in the epigastric area. The pain is constant. There is no clear relieving or exacerbating features. Is associated with nausea but no vomiting. The pain does not radiate. This rated the pain was a 10/10. Today the pain is a 4/10. He denies any diarrhea constipation. No blood in the stool. Symptoms are new in onset over the past week. Related Data Previous Rx's Medication Instructions Recorded cyclobenzaprine 10 mg tablet 10 mg PO TID PRN muscle spasm #20 01/09/21 tabs ibuprofen 800 mg tablet 800 mg PO Q8H PRN pain #30 tabs 01/09/21 amoxicillin 500 mg capsule 500 mg PO BID #10 caps 03/14/21 loratadine 10 mg tablet (Claritin) 10 mg PO DAILY PRN allergy 03/14/21 symptoms #20 tabs cyclobenzaprine 10 mg tablet 10 mg PO TID PRN muscle spasm #20 01/07/22 tabs cyclobenzaprine 10 mg tablet 10 mg PO TID PRN muscle spasm #10 01/30/22 tabs ibuprofen 600 mg tablet 600 mg PO Q8H PRN pain #10 tabs 01/30/22 lidocaine 5 % topical patch 1 patch topical DAILY #15 ea 01/30/22 cyclobenzaprine 10 mg tablet 10 mg PO Q8H #14 tabs 02/13/22 ibuprofen 800 mg tablet 800 mg PO Q8H PRN pain #14 tabs 02/13/22 oxycodone 5 mg tablet 5 mg PO Q6H PRN pain #14 tabs 02/13/22 albuterol sulfate 90 mcg/actuation 2 puff inhalation Q4-6H PRN 04/15/22 aerosol inhaler shortness of breath or wheezing #8.5 grams azithromycin 250 mg tablet See Rx Instructions PO .COMPLEX #6 04/15/22 tabs benzonatate 100 mg capsule 100 mg PO TID PRN cough 5 days #15 04/15/22 caps dicyclomine 20 mg tablet 20 mg PO TID PRN abdominal pain 01/06/23 #14 tabs pantoprazole 40 mg tablet,delayed 40 mg PO DAILY #14 tabs 01/06/23 release Allergies Allergy/AdvReac Type Severity Reaction Status Date / Time No Known Allergies Allergy Verified 01/07/22 12:49 [No Known Allergies*] Review of Systems Review of Systems CONSTITUTIONAL: Denies weight loss, fever and chills. HEENT: Denies changes in vision and hearing. RESPIRATORY: Denies SOB and cough. CV: Denies palpitations no CP. GI: + abdominal pain, nausea, vomiting - diarrhea. : Denies dysuria and urinary frequency. MSK: Denies myalgia and joint pain. SKIN: Denies rash and pruritus. NEUROLOGICAL: Denies headache and syncope. PSYCHIATRIC: Denies recent changes in mood. Denies anxiety and depression. All other ROS are negative unless in HPI PMFSH Past Medical History Medical History No known health problems Surgical History No history of previous surgery Social History Social History Alcohol intake: current Alcohol intake frequency: a few times a month Smoked in Last 30 Days: Yes Use of substances other than those prescribed or required for medical reasons: No Advance Directives: No Advance Directives Information Provided: No Physical Exam ED Vital Signs: Vital Signs - 24 hr 01/06/23 10:26 01/06/23 13:21 Temperature 97.2 F Pulse Rate 73 64 Respiratory Rate 20 16 Blood Pressure 111/64 128/84 Pulse Oximetry 97 99 Oxygen Delivery Method Room Air Room Air BMI result Body Mass Index 30.8 GEN: Well developed, no acute distress, alert, oriented HEENT: Normocephalic, atraumatic, normal external ears, nose appears normal, no oropharyngeal edema or exudates Eyes: Normal to appearance Neck: Supple, no lymphadenopathy Respiratory: Talks in complete sentences, no respiratory distress, clear to auscultation bilaterally Cardiovascular: Regular rate and rhythm, no murmurs rubs or gallops Abdomen: Soft, epigastric tenderness, nondistended, no guarding, no rebound, negative Steve sign, negative McBurney's point tenderness Back: No CVA tenderness Extremities: No clubbing cyanosis or edema Neurologic: No focal neurologic deficits, cranial nerves 2-12 intact, strength is 5/5 bilaterally Skin: No rash Course Course Course Narrative: Is 4:13 p.m.. The workup is complete. Ultrasound identifies a gallbladder polyp. I discussed the result with the patient. There is no evidence of biliary colic or acute cholecystitis. LFTs, lipase were within normal limits. Patient's pain is most likely gastritis, gastroesophageal reflux her gastroparesis. Will trial the patient on dicyclomine the and pantoprazole with a follow-up with Gastroenterology. Patient return for any worsening or concerning symptoms. Medical Decision Making Medical Decision Making [facility] Narrative: 37-year-old male presents with upper abdominal pain. Examination was consistent with epigastric tenderness without rebound or guarding. Negative Steve sign. Negative McBurney's point tenderness. The differential diagnosis includes gastritis, peptic ulcer, gastroparesis, pancreatitis, biliary colic, IBD, IBS, colitis, diverticulitis. Plan will be to perform an ultrasound of the abdomen. I do not believe a CT scan the abdomen pelvis would be helpful at this time. In the meantime, I will provide the patient with analgesia, and any additional symptomatic support. Additionally, I will order routine laboratory analysis to check for lipase further pancreatitis, LFTs to look for biliary colic. Differential Diagnosis Differential Diagnoses: The differential diagnosis associated with the presentation includes (See above) Admission/Observation Consideration of admission/observation: Escalation of care including admission/observation considered Lab Data [facility] Lab Attestation statement: I reviewed the patient's lab results. 01/06/23 10:45 01/06/23 10:46 Labs: Lab Results 01/06/23 01/06/23 01/06/23 Range/Units 10:45 10:46 10:46 WBC 9.1 (4.8-10.8) X10*3/uL RBC 5.26 (4.60-5.80) X10*6/uL Hgb 15.0 (14.0-18.0) g/dl Hct 44.5 (42.0-52.0) % MCV 84.6 (80.0-98.0) fL MCH 28.5 (27.0-33.0) pg MCHC 33.7 (31.0-36.0) g/dl RDW 11.9 (11.0-16.0) % Plt Count 267 (160-400) X10*3/uL MPV 9.2 L (9.4-12.4) fL Immature Gran % (Auto) 0.2 (0.0-0.4) % Neut % (Auto) 74.3 H (45-73) % Lymph % (Auto) 18.6 L (20-40) % Towns % (Auto) 5.4 (2-11) % Eos % (Auto) 1.1 (0-4) % Baso % (Auto) 0.4 (0-2) % Lymph # (Auto) 1.7 (1.2-4.9) X10*3/uL Towns # (Auto) 0.5 (0.1-1.2) X10*3/uL Eos # (Auto) 0.1 (0.0-0.4) X10*3/uL Baso # (Auto) 0.0 (0.0-0.2) X10*3/uL Abs Immat Gran (auto) 0.02 (0.00-0.03) X10*3/uL Absolute Neuts (auto) 6.7 (2.0-8.3) x10*3/uL Absolute Nucleated RBC 0.000 (0.0-0.012) X10*3/uL Nucleated RBC % (auto) 0.0 (0.0-0.2) /100WBC Sodium 143 (135-145) mmol/L Potassium 3.7 (3.3-5.1) mmol/L Chloride 108 (96-108) mmol/L Carbon Dioxide 24 (22-29) mmol/L Anion Gap 15 (12-20) BUN 14 (9-16) mg/dL Creatinine 0.89 (0.5-1.4) mg/dL Estim Creat Clear Calc 141.0 Estimated GFR > 60 Random Glucose 101 (60-115) mg/dL Calcium 9.5 (8.4-10.2) mg/dL Total Bilirubin 0.5 (0.0-1.0) mg/dL Direct Bilirubin 0.2 (0.0-0.5) mg/dL AST 15 (5-37) U/L ALT 24 (0-40) U/L Alkaline Phosphatase 74 (39-117) U/L Total Protein 7.1 (6.5-8.0) g/dL Albumin 4.0 (3.5-5.0) g/dL Lipase 10 (8-78) U/L Urine Color Yellow Urine Appearance Clear Urine pH 6.0 (5.0-9.0) Ur Specific Holl[place] >= 1.030 H (1.005-1.025) Urine Protein Trace (Neg-Trace) mg/dL Urine Glucose (UA) Negative (Negative) mg/dL Urine Ketones Trace (Negative) mg/dL Urine Blood Negative (Negative) Urine Nitrite Negative (Negative) Ur Leukocyte Esterase Negative (Negative) Independent Interpretation I performed an independent interpretation of an: Ultrasound (Limited abdomen: No acute cholecystitis) Radiology Impression Discussion of test interpretation with radiology: I have reviewed the radiologist's reading. Radiologist Impression: US/US abdomen limited IMPRESSION: 0.3 cm echogenic focus along the superficial wall of the gallbladder is nonspecific, but could represent a small polyp. No other significant abnormality. This can be monitored for change with a right upper quadrant ultrasound in one year. No definitive acute abnormality. ? Dictated By: Jose Strickland MD Signed By: <Electronically signed by Jose Strickland MD in [place]> 01/06/23 0645 Prescription Management I considered prescription management with: Pain Medication Medications Administered Discontinued Medications Generic Name Dose Route Start Last Admin Trade Name Freq PRN Reason Stop Dose Admin Famotidine 20 mg 01/06/23 11:29 01/06/23 11:45 Famotidine 20 Mg Tablet PO 01/06/23 11:30 20 mg ONCE ONE Administration Ketorolac Tromethamine 30 mg 01/06/23 11:29 01/06/23 11:45 Ketorolac Tromethamine 30 Mg/Ml Vial IM 01/06/23 11:30 30 mg ONCE ONE Administration Discharge Plan Discharge Clinical Impression: Abdominal pain, Gallbladder polyp Patient Disposition: Home, Self-Care Instructions: Gastroesophageal Reflux Disease (ED), Abdominal Pain (ED) Prescriptions: New dicyclomine 20 mg tablet 20 mg PO TID PRN (Reason: abdominal pain) Qty: 14 0RF pantoprazole 40 mg tablet,delayed release (DR/EC) 40 mg PO DAILY Qty: 14 0RF No Action ibuprofen 800 mg tablet 800 mg PO Q8H PRN (Reason: pain) Qty: 30 0RF cyclobenzaprine 10 mg tablet 10 mg PO TID PRN (Reason: muscle spasm) Qty: 20 0RF cyclobenzaprine 10 mg tablet 10 mg PO TID PRN (Reason: muscle spasm) Qty: 20 0RF cyclobenzaprine 10 mg tablet 10 mg PO TID PRN (Reason: muscle spasm) Qty: 10 0RF ibuprofen 600 mg tablet 600 mg PO Q8H PRN (Reason: pain) Qty: 10 0RF lidocaine 5 % adhesive patch,medicated 1 patch topical DAILY Qty: 15 0RF Rx Instructions: leave on most painful area for up to 12 hrs albuterol sulfate 90 mcg/actuation HFA aerosol inhaler 2 puff inhalation Q4-6H PRN (Reason: shortness of breath or wheezing) Qty: 8.5 0RF azithromycin 250 mg tablet See Rx Instructions .ROUTE .COMPLEX Qty: 6 0RF Rx Instructions: For 250 mg dose pack: take 500 mg today (day 1), then 250 mg for 4 days (days 2-5) benzonatate 100 mg capsule 100 mg PO TID PRN (Reason: cough) 5 Days Qty: 15 0RF amoxicillin 500 mg capsule 500 mg PO BID Qty: 10 0RF loratadine [Claritin] 10 mg tablet 10 mg PO DAILY PRN (Reason: allergy symptoms) Qty: 20 0RF ibuprofen 800 mg tablet 800 mg PO Q8H PRN (Reason: pain) Qty: 14 0RF cyclobenzaprine 10 mg tablet 10 mg PO Q8H Qty: 14 0RF oxycodone 5 mg tablet 5 mg PO Q6H PRN (Reason: pain) Qty: 14 0RF Rx Instructions: Partial Fill upon patient request. Referrals: Trish Wright MD [Physician] - 1 week Stand Alone Forms: Work/School Release
== END 2023-01-06 16:48 | disposition home or self-care (01) ==
PROVIDERS: Emergency Provider Emergency Medicine
DX: K82.4 Cholesterolosis of gallbladder (principal); R10.13 Epigastric pain; Z79.899 Other long term (current) drug therapy
CPT/HCPCS: 36415; 76705; 80048; 80076; 81003; 83690; 85025; 96372; 99284; J1885